=== PATIENT | female | born 1980 | race Caucasian/White ===

== ENCOUNTER 2022-07-28 08:45 | Emergency (ER) | payer BC, SELFPAY ==
[2022-07-28 08:53] VITALS: BP 104/69; PULSE 113; RESP 21; TEMP 36.9; O2SAT 97
--- NOTE | 2022-07-28 09:26 | ED.URI ---
HPI - URI/Sore Throat General Chief Complaint: Upper Respiratory Infection Stated Complaint: ear pain, cough, sore throat Time Seen by Provider: 07/28/22 09:23 Source: patient, RN notes reviewed and old records reviewed Mode of arrival: ambulatory Limitations: no limitations History of Present Illness HPI Narrative: 42-year-old female presents to the [facility] with cough, sore throat, bilateral ear pain, worse on the left than the right. States it has been about 2-3 days. Has taken ibuprofen with no relief. No treatment of cold medicine. Patient states a week ago they had flu-like symptoms. Everybody else is better however her ear pain has gotten worse. Has a cough, postnasal drainage. Patient is afebrile MD elicited complaint: cough, sore throat, rhinorrhea and nasal congestion Related Data Allergies Allergy/AdvReac Type Severity Reaction Status Date / Time Contrast Media Allergy Mild Nausea Uncoded 07/28/22 08:56 Review of Systems Review of Systems: All systems reviewed & are unremarkable except as noted in HPI and below Constitutional: Constitutional: Reports no additional constitutional complaints Eyes: Eyes: Reports no additional eye complaints ENT: Reports as per HPI, Reports otalgia, Reports nasal congestion and Reports sore throat Cardiovascular: Cardiovascular: Reports no additional cardiovascular complaints, Denies chest pain and Denies dyspnea Respiratory: Respiratory: Reports no additional respiratory complaints, Denies chest congestion, Denies cough and Denies dyspnea Gastrointestinal: Gastrointestinal: Reports no additional gastrointestinal complaints, Denies abdominal pain, Denies nausea and Denies vomiting Musculoskeletal: Musculoskeletal: Reports no additional musculoskeletal complaints Integumentary/Breasts: Skin/Breast: Reports system reviewed and no additional complaints, except as docu Neurologic: Reports system reviewed and no additional complaints, except as documented Psychiatric: Psychiatric: Reports no additional psychiatric complaints Allergic/Immunologic: Allergic/Immunologic: Reports no additional allergic/immunologic complaints [facility] Past Medical History Medical History Anemia Family History Family History Grandparent Breast cancer Social History Social History Smoking status: Never smoker Alcohol intake: never Comments At the time of my signature, I reviewed and agree with the nursing past medical, surgical, social, and family history. There is no relevant family history pertinent to the patient complaint. Exam Const: General: cooperative, healthy appearing, comfortable, no acute distress, well developed, alert and well nourished Nutritional Appearance: well nourished Orientation/consciousness: patient oriented x3 Limitations: no limitations HENMT: Head: normal to inspection Ears: hearing grossly normal bilaterally, external ears normal and TM abnormal bulging on the left and erythematous on the left Face/Nose/Sinus: Normal external nose present, Normal nares present, Normal nasal mucous membranes and turbinates present and normal facial exam Face and sinus: normal facial exam Mouth: Yes Normal oral and palatal mucosa present, Yes lip normal and Yes moist mucous membranes Throat: posterior oropharynx normal, uvula midline and postnasal drainage Eyes: General: appearance normal, both eyes and all related structures Alignment and Position: alignment normal Periorbital: periorbital findings normal Conjunctivae: conjunctivae normal Pupils: Equal, round and reactive pupils present EOM: EOMs intact bilaterally Neck: Neck: normal visual inspection, full ROM, no lymphadenopathy and no meningeal signs Chest: Chest palpation & inspection: normal inspection of the chest Resp: Effort & Inspection: normal respir
== END 2022-07-28 09:36 | disposition home or self-care (01) ==
PROVIDERS: Emergency Provider Nurse Practitioner; PCP Internal Medicine
DX: H66.92 Otitis media, unspecified, left ear (principal); H65.01 Acute serous otitis media, right ear; R09.82 Postnasal drip
CPT/HCPCS: 99213; G0463

== ENCOUNTER 2024-06-11 00:29 | Day surgery (SDC) | payer BC, SELFPAY ==
[2024-05-30 15:15] VITALS: BMI 22.8
--- NOTE | 2024-06-11 06:40 | WPDANESEPP ---
Anes - Eval Pre Procedure Procedure: Operation Date: 06/11/24 08:30 Proposed Procedures p Screening Colonoscopy - Joseph Ramirez DO Date/Time: 06/11/24 06:40 Pre Op Diagnosis: Screening for malignant neoplasm of colon Patient Data Age: 44 Gender: F Height: 1.65 m Weight: 62.25 kg Allergies Allergy/AdvReac Type Severity Reaction Status Date / Time Contrast Media Allergy Intermediate Nausea and Uncoded 05/30/24 15:16 Vomiting Home Medications Medication Instructions Recorded Confirmed Type meclizine 12.5 mg tablet 12.5 mg PO TID PRN dizziness #30 04/12/24 05/30/24 Rx tabs olopatadine 0.2 % eye drops 1 drp EACH EYE DAILY 04/12/24 05/30/24 History (Pataday Once Daily Relief) cholecalciferol (vitamin D3) 1,250 1,250 mcg PO WEEKLY #8 caps 05/15/24 05/30/24 Rx mcg (50,000 unit) capsule Patient hx anesthesia problems: none Family hx anesthesia problems: none Results Review: All pre-operative results and documents have been reviewed as part of the pre-operative evaluation. [facility] Past Medical History Medical History (Updated 04/12/24 @ 12:00 by Mary Hernandez NP) Anemia Surgical History Surgical History (Updated 06/11/24 @ 06:41 by John Rodriguez MD) H/O arthroscopic knee surgery H/O laparoscopy History of appendectomy Family History Family History Grandparent Breast cancer Social History Social History Smoking status: Never smoker Alcohol intake: current Substance use: never Do You Feel Safe in your Home?: Yes Lack of Transportation: No Lack of Food: Never True Current Housing: I Have Housing Concerned About Future Housing: No Difficulty Paying Gas/Electric Bills: No Difficulty Paying for Meds: No Currently Unemployed: No Education: Bachelor's Degree Difficulty w/ Childcare or Family Care: No Living arrangements: with family Spiritual care concerns: No Exam Day of Procedure 06/11/24 06:40 Patient weight: normal
--- NOTE | 2024-06-11 07:19 | P.PNAN_ITS ---
Anes - Eval Final PreProcedure Day of Procedure 06/11/24 07:19 Patient weight: normal Heart: regular rate and rhythm Lungs: clear to auscultation Airway: Mallampati scale class 1 Neurological: alert and oriented Last oral intake: >/= 8 hours ASA classification: I Emergent: no Anesthetic plan: proceed Anesthesia type and monitoring: general GIVS and standard monitoring Results Review: All pre-operative results and documents have been reviewed as part of the pre- operative evaluation. Informed Consent: The patient's anesthetic plan and its attendant risks and benefits were discussed with the patient/family/POA. Questions were solicited and answers provided to the satisfaction of the patient/family/POA.
[2024-06-11 07:29] VITALS: BP 102/73; PULSE 107; RESP 18; TEMP 35.8; O2SAT 98
[2024-06-11] MEDS: LACTATED RINGERS 1,000 ML 150 ML IV CONT (07:39)
--- NOTE | 2024-06-11 08:46 | P.HP_ITS ---
H&P: HPI History of Present Illness Date/Time: 06/11/24 08:46 Chief Complaint: Screening for colorectal cancer Narrative: this is a 44-year-old woman who presents for colonoscopy. She has never had a colonoscopy before. She denies any hematochezia or melena. She denies family history of colon cancer. Review of Systems Review of Systems: All systems reviewed & are unremarkable except as noted in HPI and below Constitutional: Constitutional: Denies chills, Denies fever(s), Denies headache(s) and Denies weight loss Eyes: Eyes: Denies change in vision ENT: Denies dizziness, Denies headache(s), Denies neck mass and Denies throat swelling Cardiovascular: Cardiovascular: Denies chest pain, Denies lightheadedness and Denies dyspnea Respiratory: Respiratory: Denies cough, Denies dyspnea and Denies wheezing Gastrointestinal: Gastrointestinal: Denies abdominal pain, Denies change in bowel habits, Denies nausea and Denies vomiting Genitourinary: Genitourinary: Denies hematuria and Denies dysuria Musculoskeletal: Musculoskeletal: Reports as per HPI Integumentary/Breasts: Skin/Breast: Reports as per HPI Neurologic: Denies dizziness and Denies headache(s) Allergic/Immunologic: Allergic/Immunologic: Denies throat swelling and Denies wheezing [facility] Past Medical History Medical History (Updated 04/12/24 @ 12:00 by Mary Hernandez NP) Anemia Surgical History Surgical History (Updated 06/11/24 @ 06:41 by John Rodriguez MD) H/O arthroscopic knee surgery H/O laparoscopy History of appendectomy Family History Family History Grandparent Breast cancer Social History Social History Smoking status: Never smoker Alcohol intake: current Substance use: never Do You Feel Safe in your Home?: Yes Lack of Transportation: No Lack of Food: Never True Current Housing: I Have Housing Concerned About Future Housing: No Difficulty Paying Gas/Electric Bills: No Difficulty Paying for Meds: No Currently Unemployed: No Education: Bachelor's Degree Difficulty w/ Childcare or Family Care: No Living arrangements: with family Spiritual care concerns: No Meds Home Medications and Allergies Home Medications Medication Instructions Recorded Confirmed Type meclizine 12.5 mg tablet 12.5 mg PO TID PRN dizziness #30 04/12/24 06/11/24 Rx tabs olopatadine 0.2 % eye drops 1 drp EACH EYE DAILY 04/12/24 06/11/24 History (Pataday Once Daily Relief) cholecalciferol (vitamin D3) 1,250 1,250 mcg PO WEEKLY #8 caps 05/15/24 06/11/24 Rx mcg (50,000 unit) capsule Allergies Allergy/AdvReac Type Severity Reaction Status Date / Time Contrast Media Allergy Intermediate Nausea and Uncoded 06/11/24 07:25 Vomiting Vital Signs Vital Signs - 24 hr 06/11/24 07:29 Temperature 96.4 F L Pulse Rate 107 H Respiratory Rate 18 Blood Pressure 102/73 Pulse Oximetry 98 Oxygen Delivery Room Air Exam Const: General: no acute distress and alert Orientation/consciousness: patient oriented x3 HENMT: Head: normocephalic and atraumatic Ears: hearing grossly normal bilaterally Face/Nose/Sinus: Normal nares present Mouth: Yes Normal oral and palatal mucosa present Eyes: Periorbital: periorbital findings normal Sclera: sclerae normal EOM: EOMs intact bilaterally Neck: Neck: normal visual inspection, no lymphadenopathy and trachea midline Chest: Chest palpation & inspection: normal inspection of the chest Resp: Effort & Inspection: normal respiratory effort Auscultation: clear to auscultation bilaterally Cardio: Jugular venous distension: no JVD Rate: regular rate Rhythm: regular rhythm Heart sounds: S1 normal heart sound present and S2 normal heart sound present Peripheral pulses: Peripheral pulses 2+ throughout GI: Inspection: normal to inspection GI Palp: Yes Soft to palpation, No Tenderness to palpation present (GI), No Guarding due to palpation present (GI) and No Rebound tenderness present Percussion: Yes normal to percussion Auscultation: normal bowel sounds : General: Yes no CVA tenderness Back/Spine/Pelvis: Back: no CVA tenderness Neuro: General: patient oriented x3, no focal motor deficits and CN's II-XI intact bilaterally Cognition (Neuro): normal cognition Speech: normal speech Motor exam (neuro): 5/5 motor strength present throughout Extrem: General: capillary refill normal and no clubbing, cyanosis or edema Assessment and Plan Assessment and plan (1) Screening for colon cancer: Code(s): Z12.11 - Encounter for screening for malignant neoplasm of colon Status: Acute Assessment and Plan: I have recommended colonoscopy. I have discussed the procedure, risks, benefits, and alternatives. Questions were answered. Patient is agreeable to proceed.
[2024-06-11 09:01] VITALS: BP 94/65; PULSE 88; RESP 20; O2SAT 99
[2024-06-11 09:01] LABS: BEDSIDEPREGUCG Negative (Negative)
[2024-06-11 09:11] VITALS: BP 96/50; PULSE 83; RESP 19; O2SAT 99
[2024-06-11 09:21] VITALS: BP 103/75; PULSE 76; RESP 22; O2SAT 99
== END 2024-06-11 09:40 | disposition home or self-care (01) ==
PROVIDERS: PCP Nurse Practitioner; Visit Provider Surgery
PROC: 0DJD8ZZ Inspection of Lower Intestinal Tract, Via Natural or Artificial Opening Endoscopic (ICD-10-PCS; CPT 45378; principal; 2024-06-11 08:30)
DX: Z12.11 Encounter for screening for malignant neoplasm of colon (principal)
CPT/HCPCS: 45378; J2704; J7120

== ENCOUNTER 2024-09-03 10:41 | Outpatient (CLI) | payer BC, SELFPAY ==
--- NOTE | ~2024-09-03 | XR_ITS ---
AP and lateral views of the sacrum/coccyx CLINICAL HISTORY: Back pain FINDINGS: No fracture or dislocation seen. Joint spaces are intact. Soft tissues are unremarkable. IMPRESSION: No significant abnormality seen. Reviewed, dictated and finalized at [facility]. 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
--- NOTE | ~2024-09-03 | XR_ITS ---
HISTORY: M54.9 - Dorsalgia, unspecified COMPARISON: 11/02/2017. Reference was also made to an MRI examination of the lumbar spine dated 11/11/19 18 TECHNIQUE: 3 view lumbar spine. FINDINGS: 12 degrees of levoscoliotic curvature is identified. There are 6 non-rib bearing lumbar vertebral bodies. Trace narrowing at the level of L4/L5 with endplate change. Remaining spaces and vertebral body heights are otherwise maintained. There are no lytic or sclerotic lesions. Paraspinal soft tissues are unremarkable. Mild facet arthropathy is detected. IMPRESSION: Redemonstration of mild levoscoliotic curvature, and trace disc space narrowing at the level of L4/L5 . Reviewed, dictated and finalized at location [facility]. [facility] IMPRESSION: Redemonstration of mild levoscoliotic curvature, and trace disc space narrowing at the level of L4/L5.
== END 2024-09-03 10:42 | disposition home or self-care (01) ==
LOC: GOSHIMG 10:41
PROVIDERS: PCP Nurse Practitioner; Visit Provider Nurse Practitioner
DX: M41.86 Other forms of scoliosis, lumbar region (principal); M48.061 Spinal stenosis, lumbar region without neurogenic claudication; M53.3 Sacrococcygeal disorders, not elsewhere classified
CPT/HCPCS: 72100; 72220

== ENCOUNTER 2024-09-04 13:37 | Outpatient (CLI) | payer BC, SELFPAY ==
--- NOTE | ~2024-09-04 | MR_ITS ---
EXAMINATION: MR lumbar spine wo con DATE: 09/04/2024 14:14 INDICATION: Lumbar radiculopathy TECHNIQUE: Magnetic resonance imaging (MRI) of the lumbar spine was performed without intravenous con trast. Sequences included sagittal T2-weighted FSE, sagittal T2-weighted FS FSE, sagittal T1-weighted FSE, and axial T2-weighted FSE. COMPARISON: Radiographs dated 09/03/2024 and MRI dated 11/10/2017 FINDINGS: Again seen are 6 nonrib-bearing lumbar vertebral bodies which for purposes of this report will be carter ignated L1-L5. Of note this was not recognized on the prior study resulting in a difference in number ing of the vertebral bodies with L5 in the current study corresponding to L4 on the report on the dayna or study. There is a normal complement of 12 paired rib bearing thoracic segments evident on prior est CT dated 12/2016. 11 degrees lumbar levocurvature. 1-2 mm retrolisthesis L5 on L6. Chronic mild likely physiologic ante rior wedging at T11-L1. There are Schmorl's nodes with adjacent fibrovascular degenerative endplate c hanges at both sides of the moderately narrowed there are T1 hyperintense hemangiomas at L5-L6 disc s pace. Again seen are T1 hyperintense hemangiomas at L2 and L5. Mild disc height loss at L3-L4. The co nus medullaris terminates at L2. There is normal signal in the caudal spinal cord. Paravertebral soft tissues are unremarkable. The following disc levels are specifically discussed: L1-L2: The disc does not extend beyond the endplate margin. There is no facet joint osteoarthritis. T here is no neural foraminal stenosis. There is no central canal stenosis. L2-L3: The disc does not extend beyond the endplate margin. There is mild right facet joint osteoarth ritis. There is no neural foraminal stenosis. There is no central canal stenosis. L3-L4: Disc is mildly bulging. There is mild bilateral facet joint osteoarthritis. There is no neural foraminal stenosis. There is minimal central canal stenosis. L4-L5: Disc is mildly bulging. There is mild to moderate bilateral facet joint osteoarthritis. There is mild bilateral neural foraminal stenosis. There is minimal central canal stenosis. L5-S1: Disc is bulging with superimposed annular fissure and slight increase in size of a central dis c extrusion which extends 6 mm caudal to the level of the superior endplate of L6. There is mild to m oderate bilateral facet joint osteoarthritis. There is moderate bilateral neural foraminal stenosis. There is mild central canal stenosis along with narrowing of the left and right lateral recesses. L5-L6: The disc does not extend beyond the endplate margin. There is mild bilateral facet joint osteo arthritis. There is no neural foraminal stenosis. There is no central canal stenosis. IMPRESSION: 1. Normal anatomic variant 6 nonrib-bearing lumbar segments which for purposes of this report will be designated L1-L6. 2. Lumbar spondylosis with interval progression moderate disc height loss with a moderate-sized centr al disc protrusion contributing to moderate bilateral neural foraminal stenosis at L4-L5. Otherwise m inimal to mild lumbar spondylosis. Reviewed, dictated and finalized at location A. [facility]ATRIST IMPRESSION: 1. Normal anatomic variant 6 nonrib-bearing lumbar segments which for purposes of this report will be designated L1-L6. 2. Lumbar spondylosis with interval progression moderate disc height loss with a moderate-sized central disc protrusion contributing to moderate bilateral sara ral foraminal stenosis at L4-L5. Otherwise minimal to mild lumbar spondylosis.
== END 2024-09-04 13:38 | disposition home or self-care (01) ==
PROVIDERS: PCP Nurse Practitioner; Visit Provider Nurse Practitioner
DX: M47.816 Spondylosis without myelopathy or radiculopathy, lumbar region (principal); M51.369 Other intervertebral disc degeneration, lumbar region without mention of lumbar back pain or lower extremity pain; M51.26 Other intervertebral disc displacement, lumbar region; M48.061 Spinal stenosis, lumbar region without neurogenic claudication; M54.16 Radiculopathy, lumbar region
CPT/HCPCS: 72148

== ENCOUNTER 2024-10-25 08:16 | Emergency (ER) | payer BC, SELFPAY ==
--- NOTE | ~2024-10-25 | CT_ITS ---
EXAMINATION: CT lumbar spine wo con DATE: 10/25/2024 09:32 INDICATION: Back pain. TECHNIQUE: Computed tomography (CT) of the lumbar spine was performed without intravenous contrast. A utomated exposure control and iterative reconstruction technique were employed. The dose-length produ ct was 286.14 mGy-cm. COMPARISON: Lumbar spine MRI 09/04/2024, 12/30/16 FINDINGS: There is a 3.2 cm cyst in left ovary, likely a follicular cyst. There is a 2.9 cm cyst in r ight ovary, likely a dominant follicle. There are 6 nonrib-bearing lumbar type segments. S1 is lumbar ized. Alignment is normal. Vertebral body heights are normal. There is mildly decreased disc height a t L3-L4 and moderately decreased disc height at L5-L6. The following disc levels are specifically dis cussed: L2-L3: The disc does not extend beyond the endplate margin. There is mild bilateral facet joint osteo arthritis. There is no neural foraminal stenosis. There is no central canal stenosis. L3-L4: The disc is bulging. There is mild bilateral facet joint osteoarthritis. There is no neural fo raminal stenosis. There is mild central canal stenosis. L4-L5: The disc is bulging. There is mild right facet joint osteoarthritis. There is mild bilateral n eural foraminal stenosis. There is mild central canal stenosis. L5-S1: The disc is bulging with superimposed left central extrusion. There is moderate right and mild left facet joint osteoarthritis. There is mild bilateral neural foraminal stenosis. There is mild ce ntral canal stenosis. S1-S2: The disc does not extend beyond the endplate margin. There is moderate bilateral facet joint o steoarthritis. There is no neural foraminal stenosis. There is no central canal stenosis. IMPRESSION: 1. Moderate lumbar spondylosis, stable from 09/04/2024. Reviewed, dictated and finalized at location A.
[2024-10-25 08:20] VITALS: BP 141/98; PULSE 100; RESP 20; TEMP 36.4; O2SAT 100
--- OUTSIDE RECORDS SUMMARY | 2024-10-25 08:23 | XMS_ITS | Data Portability ---
Author Organization [facility] Address [address] [place] [address] Care Team Providers Care Environmental Journalist Name Role Phone OSMAR XAVIER Primary Care Provider Assessment Encounter Date Assessment Date Assessment LastModified by Organization Details LastModified Time 05/04/2021 05/04/2021 The patient and I disscussed the various causes of abnormal uterine bleeding, including polyps, fibroids, hyperplasia, atypia, anovulation, etc. We reviewed the typical evaluation with labs, pelvic US and possible endometrial biopsy. Briefly discussed the options available for treatment (depending on the results of evaluation) such as hormonal treatment (OCPs, progestins), Mirena, endometrial ablation, and surgery. We spent more than 30 minutes face to face. [email or web address] Not available 05/04/2021 16:03:37 Plan of Treatment Reminders Order Date Submit Date Provider Last Modified By Organization Details Last Modified Time Details Appointments None recorded. Lab None recorded. Referral None recorded. Procedures None recorded. Surgeries None recorded. Imaging US, pelvis, complete 2020 Davin Briones MD, [address], [place], [address], 16:11:52 US, pelvis 2020 [email or web address] Anita, [address], [address], [place], [address], 14:12:45 US, transvagina l 2020 [email or web address] Anita[address], [place], [address], 14:12:45 US, pelvis, complete 2020 021 [email or web address] [address]ita[address], [place], [address], 14:55:10 Medication Orders None recorded. Patient TargetsNo targets recorded. Patient InstructionsNo instructions recorded. Reason for Referral None Reported. Results Created Date Observation Date Name Description Value Unit Range Abnormal Flag Note LastModifiedBy Organization Detail LastModifiedTime 05/06/2005/06/2021 US, ralu ken No observ ation record ed. [email or web address] Anita [address], [place], [address], 05/06/2021 13:45:15 05/06/2005/06/2021 US, trans vagin al No observ ation record ed. [email or web address] Anita [address], [place], [address], 05/06/2021 13:45:24 05/06/20 21 05/06/2021 US, jovanvi s No observ ation record ed. layran Anh [address], [place], [address], 05/13/2021 18:04:31 Result Notes None recorded. Problems Name Problem SNOMED Code Status Onset Date Resolution Date Notes Provider Name and Address Organization Details Recorded Time SNOMED CT Concept Completed 201705/04/2021 Encntr for general adult medical exam w/o abnormal findings; Recorded Elsewhere : No Locati on: [facility] So urce: EHR Chron ic: N Practic e ID: 0001 Bill able Time: 01:00:00 PM Marie Latham [place] - [facility] 13:38:55 Screenin g for malignan t neoplasm of cervix Completed 201305/04/2021 Screening for malignant neoplasms of the cervix;Re corded Elsewhere : No Locati on: [facility] So urce: EHR Chron ic: N Practic e ID: 0001 Bill able Time: 02:00:00 PM Marie Latham [facility] 13:38:50 Palpitat ions [id number] Completed 201305/04/2021 Palpitati ons;Recor ded Elsewhere : No Locati on: [facility] So urce: EHR Chron ic: N Practic e ID: 0001 Bill able Time: 02:00:00 PM Marie Latham [facility] 13:38:[address] Concept Completed 201705/04/2021 Encntr for telephone maintainer exam (general) (routine) w/o abn findings; Recorded Elsewhere : No Locati on: [facility] So urce: EHR Chron ic: N Practic e ID: 0001 Bill able Time: 01:00:00 PM Marie Latham [facility] 13:38:57 Finding of menstrua l bleeding Completed 201705/04/2021 Menorrhag ia;Record ed Elsewhere : No Locati on: [facility] So urce: EHR Chron ic: N Practic e ID: 0001 Bill able Time: 01:00:00 PM Marie Latham [facility] 13:38:28 Disorder of breast 16964565 Completed 201705/04/2021 Disorder of breast, unspecifi ed;Record ed Elsewhere : No Locati on: [facility] So urce: EHR Chron ic: N Practic e ID: 0001 Bill able Time: 01:00:00 PM Marie Latham [facility] 13:38:25 Routine antenata l care Completed 201005/04/2021 Supervisi on of other normal ;Practice ID: 0001 Marie [facility] 13:38:35 Poor growth affectin g manageme nt [id number] Completed 201005/04/2021 GROWTH POOR SGA;Pract ice ID: 0001 Marie Latham [facility] 13:38:33 Delivery normal [id number] Completed 201005/04/2021 Normal delivery; Practice ID: 0001 Marie Latham [facility] 13:38:23 Single live [id number] Completed 201005/04/2021 Mother with single liveborn; Practice ID: 0001 Marie Latham [facility] 13:38:53 Leukocyt osis 812986655 Completed 201305/04/2021 LEUKOCYTO SIS NOS;Pract ice ID: 0001 Marie Latham [facility] 13:38:30 Female genital organ symptoms 227140754 Completed 201305/04/2021 Unspecifi ed symptom associate d with female genital organs;Pr actice ID: 0001 Marie Latham [facility] 13:38:26 Speciali zed medical examinat ion Completed 201305/04/2021 Routine gynecolog ical examinati on;Practi ce ID: 0001 Marie Latham [facility] 13:38:58 Cyst of ovary [id number] Completed 201305/04/2021 OVARIAN CYST;Prac griselda ID: 0001 Marie Latham [facility] 13:38:22 Problem Notes None recorded. Procedures Surgical History Date Name Laterality Status Provider Name and Address Organization Details Recorded Time 05/12/20 Date of Last Mammogram completed Marie Latham [facility] 05/12/2021 17:31:37 07/31/19 13 Appendectomy completed [facility] 05/12/2021 17:27:51 07/31/19 13 laparoscopy completed [facility] 05/12/2021 17:28:28 Imaging Results Imaging Date Name Status LastModified by Organization Details LastModified Time 05/06/2021 US, pelvis completed [email or web address] Anita [address], [place], [address], 05/06/2021 13:45:15 05/06/2021 US, transvaginal completed [email or web address] Mary[place] e [address], [place], [address], 05/06/2021 13:45:24 05/06/2021 US, pelvis completed layran Anh [address], [place], [address], 05/13/2021 18:04:31 Procedure Notes None recorded. Medical Equipment None Reported. Allergies Allergen ID Allergen Name Allergen Category Reaction Reaction Severity Criticality Documentation Date Start Date Code Code System Note Provider Name and Address Organization Details Recorded Time 59754 Iodinated contrast media (substanc e) medicatio n Not available Not available Not available 05/04/[address] [facility] 16:05:02 Vitals Date Recorded Body height Body mass index (BMI) Body weight Systolic blood pressure Diastolic blood pressure Provider Name and Address Organization Details Last Updated DateTime 05/04/2021 163.83 cm 22.8 kg/m2 54309.97 g 109 mm[Hg] 71 mm[Hg] [facility] 16:04:48 Date Recorded Body height Body mass index (BMI) Body weight Systolic blood pressure Diastolic blood pressure Provider Name and Address Organization Details Last Updated DateTime 05/13/2021 163.83 cm 23.2 kg/m2 94856.15 g 99 mm[Hg] 64 mm[Hg] Marie Latham [facility] 13:04:01 Social History Question Answer Notes LastModified by Organizat ion Details LastModified Time Tobacco Smoking Status Never Smoker Marie Latham [facility], [facility] 05/12/2021 17:29:51 What Is Your Level Of Alcohol Consumption? None Information not available 05/12/2021 Are You Blind Or Do You Have Difficulty Seeing? No Information not available 05/12/2021 What Is Your Level Of Caffeine Consumption? Occasional Information not available 05/12/2021 Are You Deaf Or Do You Have Serious Difficulty Hearing? No Information not available 05/12/2021 What Type Of Diet Are You Following? REGULAR Information not available 05/12/2021 Do You Use Your Seat Belt Or Car Seat Routinely? Yes Information not available 05/12/2021 Do You Have Smoke And Carbon Monoxide Detectors In Your Home? Yes Information not available 05/12/2021 Do You Feel Stressed (tense, Restless, Nervous, Or Anxious, Or Unable To Sleep At Night)? [id number] Information not available 05/12/2021 Do You Use Any Illicit Or Recreational Drugs? No Information not available 05/12/2021 Do You Use Sunscreen Routinely? Yes Information not available 05/12/2021 Sex: Unknown Functional Status Question Answer Note LastModified by Organization D etails LastModified Time Are you able to walk? YESWOREST Information not available 05/12/2021 What is your exercise level? None Information not available 05/12/2021 Mental Status None recorded. Family History Nothing Reported. Medical History Condition Response Other Y Gynecological History Statement/Question Response Are cycles usually normal Y Date of Last Mammogram 05/12/2018 Flow Light Date of LMP 04/15/2021 Menses Monthly Y Was last menstrual period normal N Date of Last Pap Smear Duration of Flow (days) 1 LMP Approximate Obstetrics History GPAL:G 3 P 0 0 0 3 Type Value Living 3 Total 3 Past Encounters Encounter ID Performer Location Encounter Start Date Encounter Closed Date Diagnosis/Indication Diagnosis SNOMED-CT Code Diagnosis ICD10 Code Diagnosis Note [id number] Cara Flynn , [facility] [address],[place] [address] 05/04/2021 15:46:17 05/04/2021 16:31:03 Abnormal uterine bleeding 0771448364 9100 N93.9 Heavy menses with covid ast period was normal but having some right sided pelvic painWe agreed to update TVUS at this time.Defer labs b/c of recent PCP visit.Will await results & decide next steps. Time spent in visit is a total of 32 mins with at least 50% of visit consisting of counseling and review of plan of care.Addit ional precaution primitivo measures were taken to minimize potential exposure to the Covid-19 virus during this patient s visit, including available hand automobile mechanic supervisor upon arrive, temperatur e check and being asked a series of screening questions. All staff wore face coverings during this encounter, as well as provided additional cleaning and sanitizing of all surfaces, including countertop s, pens, chairs, door handles, light switches, etc, prior to and following the patient s visit. [id number] Sharynisiah Latham Anita [address],[place] [address] 05/06/2021 11:04:10 05/06/2021 12:00:12 Pain in pelvis 69706901 R10.2 N92.6 [id number] Cara Flynn , [facility] [address],[place] [address] 05/13/2021 12:51:21 05/13/2021 13:47:12 Cyst of ovary 69478407 N83.209 TVUS reviewed.S he is doing very well & no pain at all.Had her period last week & feels it has returned to her norm We agreed we can schedule r/p us x 8wks but if she is feeling fine & periods continue to return to normal than okay to cancel this imaging. She is due for updated WWE; will schedule on her way out. Time spent in visit is a total of 32 mins with at least 50% of visit consisting of counseling and review of plan of care.Addit ional precaution primitivo measures were taken to minimize potential exposure to the Covid-19 virus during this patient s visit, including available hand automobile mechanic supervisor upon arrive, temperatur e check and being asked a series of screening questions. All staff wore face coverings during this encounter, as well as provided additional cleaning and sanitizing of all surfaces, including counter-to ps, pens, chairs, door handles, light switches, etc, prior to and following the patient s visit. Health Concerns Section Related Observation LastModified by Organization Detai ls LastModified Time None Recorded Concern Status LastModified by Organization Details LastModified Time None Recorded Advance Directives Directive None Recorded Payers Encounter Date Sequence Insurance Name Policy Number Policy Paige Covered Member ID Paige Member ID Guarantor Name 05/04/2021 1 [place] [id number] Tania N [place] [id number] T[place] N [place] 05/06/2021 1 [place] [id number] Tania N [place] [id number] Tania N [place] 05/13/2021 1 [place] [id number] Tania N [place] [id number] Tania N [place] Notes Date Note Type Note Provider Name and Address Organization Details Recorded Time 05/04/2021 text/html Beer - Abnormal BleedingReported bypatient.Notes:Covid 02/2021-this menstrual cycle with large heavy clots for at least the first 2-3 days. Her next menses 04/15/2021-felt like a normal menses day one; went to bed, woke up & menses had seemingly stopped completely. Monday awoke & had a weird Since this last period has had a lot of ovary pain lower pelvic >right than left.Feels like a burning hot sensation. Unable to trigger this discomfort which presents more as a constant ache in this area.Has not had to take any pain medication.Last SA 2wks ago; but prior to this it had been 6-9mos. Normal Menstrual period, lasting 4-5 days, heavy day 2 but then moderate to progressively estimate clerk. Cara Flynn, NIKOLAI- [address], [place], [address], [facility] 05/04/2021 16:26:13 05/13/2021 text/html Here for TVUS Fo llow up for pelvic pain/irregular cycle. Cara Flynn, NIKOLAI- [address], [place], [address], [facility] 05/13/2021 13:34:57 OBGyn Episode Ob Episode Information Episode Created Date Number of Fetuses Patient Bloodtype Patient rh Status Prepregnancy Weight lbs Domestic Partner Domestic Partner Phone Father Name Refrigeration Installer Status 05/12/20 21 1 CLOSED Fetus Data First Name Last Name Admitted to NICU Weight (g) Sex Living Outcome Pediatric Complications Fetus ID Race Codes Race Delivery Type F [id number] Vaginal Delivery Ced Calculation Initial Ced Date Initial Exam Date Initial Exam Provider Initial Ultrasound Date Last Menstrual Period Date Ultra Sound Weeks Gestation 0 Eighteen To Twenty Week Ced Update Ultra Sound Date Fundal Height At Umbil Quickening Date Ultra Sound Latest Weeks Gestation Final Ced Confirmed By Final Ced Confirmed Date Final Ced Date Ultra Sound Latest Days Gestation 0 0 Menstrual History Last Menstrual Date Menses Monthly On Bcp Conception Prior Menses Frequency Hcg Plus Date Menarche Onset Age Delivery Information Delivery Date Delivery Type Labor Anesthesia Weeks Gestation Incision Type Labor Labor Length Hrs Delivered By Post Complications Tubal Sterilization Discharge Date Comments 6 Discharge Information Feeding Method Contraceptive Method Maternal HG B and HCT Levels Ob Episode Information Episode Created Date Number of Fetuses Patient Bloodtype Patient rh Status Prepregnancy Weight lbs Domestic Partner Domestic Partner Phone Father Name Refrigeration Installer Status 05/12/20 21 1 CLOSED Fetus Data First Name Last Name Admitted to NICU Weight (g) Sex Living Outcome Pediatric Complications Fetus ID Race Codes Race Delivery Type F [id number] Vaginal Delivery Ced Calculation Initial Ced Date Initial Exam Date Initial Exam Provider Initial Ultrasound Date Last Menstrual Period Date Ultra Sound Weeks Gestation 0 Eighteen To Twenty Week Ced Update Ultra Sound Date Fundal Height At Umbil Quickening Date Ultra Sound Latest Weeks Gestation Final Ced Confirmed By Final Ced Confirmed Date Final Ced Date Ultra Sound Latest Days Gestation 0 0 Menstrual History Last Menstrual Date Menses Monthly On Bcp Conception Prior Menses Frequency Hcg Plus Date Menarche Onset Age Delivery Information Delivery Date Delivery Type Labor Anesthesia Weeks Gestation Incision Type Labor Labor Length Hrs Delivered By Post Complications Tubal Sterilization Discharge Date Comments 8 Discharge Information Feeding Method Contraceptive Method Maternal HG B and HCT Levels Ob Episode Information Episode Created Date Number of Fetuses Patient Bloodtype Patient rh Status Prepregnancy Weight lbs Domestic Partner Domestic Partner Phone Father Name Refrigeration Installer Status 05/12/20 21 1 CLOSED Fetus Data First Name Last Name Admitted to NICU Weight (g) Sex Living Outcome Pediatric Complications Fetus ID Race Codes Race Delivery Type F [id number] Vaginal Delivery Ced Calculation Initial Ced Date Initial Exam Date Initial Exam Provider Initial Ultrasound Date Last Menstrual Period Date Ultra Sound Weeks Gestation 0 Eighteen To Twenty Week Ced Update Ultra Sound Date Fundal Height At Umbil Quickening Date Ultra Sound Latest Weeks Gestation Final Ced Confirmed By Final Ced Confirmed Date Final Ced Date Ultra Sound Latest Days Gestation 0 0 Menstrual History Last Menstrual Date Menses Monthly On Bcp Conception Prior Menses Frequency Hcg Plus Date Menarche Onset Age Delivery Information Delivery Date Delivery Type Labor Anesthesia Weeks Gestation Incision Type Labor Labor Length Hrs Delivered By Post Complications Tubal Sterilization Discharge Date Comments 1 Discharge Information Feeding Method Contraceptive Method Maternal HG B and HCT Levels
--- OUTSIDE RECORDS SUMMARY | 2024-10-25 08:23 | XMS_ITS | Continuity of Care Document ---
Author Organization [facility] Address [address] [place] [address] Phone Care Team Providers Care Verifier Name Role Phone Amrita SALOMON OD, [place] Unavailable Unavailabl e Allergies, Adverse Reactions, Alerts Substance Reaction Status Criticality No Known allergies Procedures Procedure Date No Charge Refractive Evaluation 013 Routine Exam-Establ Pt No Charge Orbscan Advance Directives Directive Yes / No Effective Date File Name Resuscitation Not Answered N/A N/A Life Support Not Answered N/A N/A Intubation Not Answered N/A N/A Antibiotics Not Answered N/A N/A IV Fluid Support Not Answered N/A N/A Tube Feed Not Answered N/A N/A Other Directive N/A N/A WARNING:The information contained in this section is historical and is provided for information only and does not constitute a legal document or any assurance that the information is still accurate. Please verify the information with the floyd of the legal document before using it for clinical purposes. Encounters Encounter Description Practice Location Reason(s) For Visit Diagnoses Date Provider Providers Copied on Encounter [facility], [address], [place], [place], [id number], [place] tel:[phone] [address] [facility] No Information Amrita Boyle. [address], [place], [id number], [place]. tel:[phone] Referring Provider: [place] Crowe OD P, [address] [place], [address] . tel:[phone] [facility], [facility], [address], [place], [place], [id number], [place] tel:[phone] [facility] Ballmarquita visual aura (chief complaint) SUBJ VISUAL DISTURB NOS Amrita Boyle. [address], [place], [id number], [place]. tel:[phone] Referring Provider: [place] Crowe OD P, [address] [place], [address] . tel:[phone] Family History Family Member Type Diagnosis Age At Onset Unknown Problem (finding) Diabetes mellitus Payers Payer name Insurance type Covered democrat ID Authoriza tion(s) No Information Social History Type Description Quantity Date Captured Comments Alcohol Use Details No Caffeine Use Details No Tobacco Use Status No Information Smoking Status Never smoker Sex Female Chief Complaint And Reason For Visit No Information Reason For Referral Reason For Referral No Information History Of Present Illness Encounter Date Complaint History Of Prese nt Illness No Information Functional Status Date Functional Assessmen t No Information Instructions Date Instruction Additional Infor nicolas - Return in 2 weeks with [place] Crowe O.D. for follow up exam. Related to SUBJ VISUAL DISTURB NOS SUBJ VISUAL DISTURB NOS - disc DT 1 as ctl option-disc not for astigmatism-disc may not do since pt wants Lasikdisc ICL if lasik not an optionperform repeat ORBSCAN, MR at fup Related to SUBJ VISUAL DISTURB NOS Assessments Type Assessment Date No Information Patient Care Teams Name Effective Dates (start - stop) Status Members No Information
--- OUTSIDE RECORDS SUMMARY | 2024-10-25 08:24 | XMS_ITS | Referral Summary ---
Author Organization [facility] Address [address] [address] Care Team Providers Care Cement Finisher Apprentice Name Role Phone Grayson Friend DO Primary Care Provider +1- [phone] Allergies Active Allergy Reactions Criticality Noted Date Comments Iodinated Contrast Media Nausea & Vomiting Low 08/31 Other Nausea & Vomiting Low 08/26/2014 Medications azelastine (OPTIVAR) 0.05 % ophthalmic solutionIndications :Allergic Conjunctivitis 1 9 Active olopatadine (PATADAY) 0.2 % ophthalmic solutionIndications :Allergic Conjunctivitis 1 drop daily Active Active Problems Problem Noted Date Diagnosed Date Abnormal findings on diagnostic imaging of breas t 06/14/2018 Iron deficiency anemia, unspecified 12/22/2016 Menorrhagia 12/22/2016 Social History Tobacco Use Types Packs/Day Years Used Date Smoking Tobacco: Never Smokeless Tobacco: Never Comments Unknown Sex and Gender Information Value Date Recorded Sex Assigned at Not on file Legal Sex Female 9:30 PM NIP WRAPPER Gender Identity Not on file Sexual Orientation Not on file Last Filed Vital Signs Vital Sign Reading Time Taken Comments Blood Pressure 100/71 06/15/2023 10:55 AM NIP WRAPPER Pulse 94 06/15/2023 10:55 AM NIP WRAPPER Temperature 36.3 C (97.3 F) 06/15/2023 10:55 AM NIP WRAPPER Respiratory Rate 16 06/15/2023 10:55 AM NIP WRAPPER Oxygen Saturation 97% 06/15/2023 10:55 AM NIP WRAPPER Inhaled Oxygen Concentration - - Weight 60.8 kg (134 lb) 06/15/2023 10:55 AM NIP WRAPPER Height 166 cm (5' 5.35 ) 12/16/2021 10:31 AM CDT Body Mass Index 22.06 12/16/2021 10:31 AM CDT Plan of Treatment Not on file Procedures Procedure Name Priority Date/Time Associated Diagnosis Comments DIAGNOSTIC MAMMOGRAM BILATERAL W OSMAR Schedule Routine, Read Routine (OP Routine) 05/20/2024 8:56 AM CDT Mastodynia from Last 3 Months or Most Recently Relevant to Health Maintenance Results * Diagnostic Mammogram Bilateral W Osmar (05/20/2024 8:56 AM CDT) Anatomical Region Laterality Modality Breast Bilateral Mammography 05/20/2024 9:49 AM CDT Impressions 05/20/2024 12:41 PM CDT 1. No suspicious mammographic abnormality in EITHER breast. 2. No suspicious sonographic abnormality in the area of pain in the RIGHT breast. Clinical follow-up for pain is recommended. OVERALL FINAL ASSESSMENT: BI-RADS Category 1: Negative. RECOMMENDATION: 1. Annual screening mammography is recommended. 2. Clinical follow-up is recommended. Dr. Liang discussed the above findings and recommendations with the patient, who expressed her understanding of the management plan. Dictated by: Javier Burris MD The radiology attending physician has personally reviewed this study, and had reviewed and/or edited this written report and agrees with it. Electronically signed by: Master Liang MD Narrative 05/20/2024 12:41 PM CDT EXAMINATION: BILATERAL DIGITAL DIAGNOSTIC MAMMOGRAM INCLUDING CAD AND BILATERAL DIGITAL BREAST TOMOSYNTHESIS; RIGHT BREAST SONOGRAM HISTORY: 44-year-old female with history of cyst aspirations and persistent medial right breast pain. COMPARISON: Multiple priors dating back to 2018, most recent mammogram and ultrasound 12/07/2020 TECHNIQUE: Full field digital mammographic views of BOTH breasts were performed, including computer aided detection (CAD) and BILATERAL digital breast tomosynthesis (DBT). Directed ultrasound of the RIGHT breast was performed. BREAST PARENCHYMAL COMPOSITION: There are scattered areas of fibroglandular density. MAMMOGRAM FINDINGS: There is no new suspicious abnormality within EITHER breast; the appearance of BOTH breasts is stable compared to prior exams. SONOGRAM FINDINGS: Targeted ultrasound of the RIGHT breast at the 4:00 area of pain demonstrates no suspicious sonographic abnormality. A targeted physical exam and ultrasound was performed by Dr. Liang. Procedure Note Master Liang MD - 05/20/2024 EXAMINATION: BILATERAL DIGITAL DIAGNOSTIC MAMMOGRAM INCLUDING CAD AND BILATERAL DIGITAL BREAST TOMOSYNTHESIS; RIGHT BREAST SONOGRAM HISTORY: 44-year-old female with history of cyst aspirations and persistent medial right breast pain. COMPARISON: Multiple priors dating back to 2018, most recent mammogram and ultrasound 12/07/2020 TECHNIQUE: Full field digital mammographic views of BOTH breasts were performed, including computer aided detection (CAD) and BILATERAL digital breast tomosynthesis (DBT). Directed ultrasound of the RIGHT breast was performed. BREAST PARENCHYMAL COMPOSITION: There are scattered areas of fibroglandular density. MAMMOGRAM FINDINGS: There is no new suspicious abnormality within EITHER breast; the appearance of BOTH breasts is stable compared to prior exams. SONOGRAM FINDINGS: Targeted ultrasound of the RIGHT breast at the 4:00 area of pain demonstrates no suspicious sonographic abnormality. A targeted physical exam and ultrasound was performed by Dr. Liang. IMPRESSION: 1. No suspicious mammographic abnormality in EITHER breast. 2. No suspicious sonographic abnormality in the area of pain in the RIGHT breast. Clinical follow-up for pain is recommended. OVERALL FINAL ASSESSMENT: BI-RADS Category 1: Negative. RECOMMENDATION: 1. Annual screening mammography is recommended. 2. Clinical follow-up is recommended. Dr. Liang discussed the above findings and recommendations with the patient, who expressed her understanding of the management plan. Dictated by: Javier Burris MD The radiology attending physician has personally reviewed this study, and had reviewed and/or edited this written report and agrees with it. Electronically signed by: Master Liang MD us Provider Transcribed Order IMG MAMMO PROCEDURES Final Result from Last 3 Months or Most Recently Relevant to Health Maintenance [place] [employer] [place] [facility] [place] [employer] [place] Care Teams Cement Finisher Apprentice Relationship Specialty Start Date End Date Grayson Friend DO PCP - General 11/29/16
--- OUTSIDE RECORDS SUMMARY | 2024-10-25 08:24 | XMS_ITS | Clinical Summary ---
Author Organization [facility] Address [address] [place] [address] Care Team Providers Care Solids Control Technician Name Role Phone Unavailable Primary Care Provider Unavailabl e Social History Tobacco Use Types Packs/Day Years Used Date Smoking Tobacco: Never Assessed Comments Unknown Sex and Gender Information Value Date Recorded Sex Assigned at Not on file Legal Sex Female 5:05 PM CDT Gender Identity Not on file Sexual Orientation Not on file Plan of Treatment Health Maintenance Due Date Last Done Comments Cervical Cancer Screening Pa p Smear (Age 30 to 64) Every 3 Years 1979 Colorectal Cancer Screening Colonoscopy (10 Years) 1979 Annual Physical 1982 Hepatitis C 1997 DTaP, Tdap and Td Vaccines ( 1 - Tdap) 1998 Hepatitis B Vaccines (1 of 3 - 19+ 3-dose series) 1998 Cervical Cancer Screening Pa p with HPV Testing (Age 30 to 64) Every 5 Years 2009 Cervical Cancer Screening with HPV 2009 Mammogram Screening 2019 COVID-19 Vaccine (2023-2 5 season) 2024 Influenza Adult (#1) 2024 HPV Vaccines Aged Out No longer eligi ble based on patient's age to complete this topic Meningococcal B Vaccine Aged Out No l onger eligible based on patient's age to complete this topic Meningococcal Vaccine Aged Out No hardik alise eligible based on patient's age to complete this topic Pneumococcal Vaccine: Pediat rics (0 to 5 Years) and At-Risk Patients (6 to 64 Years) Aged Out No longer eligible b ased on patient's age to complete this topic RSV Immunizations Under 20 Months Aged Out No longer eligible based on patient's age to complete this topic
--- OUTSIDE RECORDS SUMMARY | 2024-10-25 08:24 | XMS_ITS | Clinical Summary ---
Author Organization [facility] Address [address] [address] Care Team Providers Care Fiber Picker Name Role Phone Grayson Friend DO Primary Care Provider +1- [phone] Allergies Active Allergy Reactions Criticality Noted Date [...] Iron deficiency anemia, unspecified 12/22/2016 Menorrhagia 12/22/2016 Surgical History Surgery Date Site/Laterality Comments APPENDECTOMY 08/31/2003 - 09/28/2003 OVARIAN CYST REMOVAL 12/30/2003 - 01/28/2004 MENISCUS SURGERY 06/30/2005 - 07/30/2005 Family History Medical History Relation Name Comments Breast cancer Mother's Sister Breast cancer Paternal Grandmother Relation Name Status Comments Mother's Sister Paternal Grandmother Social History Tobacco Use Types Packs/Day Years Used Date Smoking Tobacco: Never Smokeless Tobacco: Never Comments Unknown Sex and Gender Information Value Date Recorded Sex Assigned at Not on file Legal Sex Female 9:30 PM KITCHEN CLEANER Gender Identity Not on file Sexual Orientation Not on file Obstetrics History Last Filed Vital Signs Vital Sign Reading Time Taken Comments Blood Pressure 100/71 06/15/2023 10:55 AM KITCHEN CLEANER Pulse 94 06/15/2023 10:55 AM KITCHEN CLEANER Temperature 36.3 C (97.3 F) 06/15/2023 10:55 AM KITCHEN CLEANER Respiratory Rate 16 06/15/2023 10:55 AM KITCHEN CLEANER Oxygen Saturation 97% 06/15/2023 10:55 AM KITCHEN CLEANER Inhaled Oxygen Concentration - - Weight 60.8 kg (134 lb) 06/15/2023 10:55 AM KITCHEN CLEANER Height 166 cm (5' 5.35 ) 12/16/2021 10:31 AM CDT Body Mass Index 22.06 12/16/2021 10:31 AM CDT Plan of Treatment Health Maintenance Due Date Last Done Comments Cervical Cancer Screening 1979 Colon Cancer Screening-Colonoscopy 1979 Depression Screening 1979 Hepatitis C Screening 1979 DTaP/Tdap/Td Vaccine (1 - Tdap) 1990 Hepatitis B Screening 1997 Regular Well Visit/Exam 18-64 1997 Influenza Vaccine (#1) 2024 Breast Cancer Screening-Mammogram 05/20/2025 05/20/2024, 11/27/2020 HPV Vaccines Aged Out No longer eligi ble based on patient's age to complete this topic Pneumococcal vaccine <65 Aged Out No longer eligible based on patient's age to complete this topic Procedures Procedure Name Priority Date/Time Associated Diagnosis [...] of the management plan. Dictated by: Javier uBrris MD The radiology attending physician has personally [...] Most Recently Relevant to Health Maintenance Insurance [employer] [place] [facility] [place] Care Teams Fiber Picker Relationship Specialty Start Date End Date Grayson Friend DO PCP - General 11/29/16
--- OUTSIDE RECORDS SUMMARY | 2024-10-25 08:24 | XMS_ITS | Patient Health Record ---
Author Organization [facility] Address [address] [place], [place] [id number] Care Team Providers Care Decommissioning Well Site Manager Name Role Phone BHARAT BARNES Unavailable [phone] Grayson Friend Unavailable Unavailable Reason For Referral No Information Social History Tobacco Use: Social History Observation Description Date Details (start date - stop date) Never Smoker NA - NA Tobacco Use/Smoking Question Answer Notes Tobacco use: nonsmoker Alcohol Screen (Audit-C) Question Answer Notes Did you have a drink containing alcohol in the p ast year? No Points 0 Interpretation Negative Plan Of Treatment No Information Insurance Providers Payer Name Payer Address Payer Phone Subscriber Number Group Number Insured Name Patient Relationship to Insured Coverage Start Date Coverage End Date [facility] ([facility]) ATTN CLAIMS [address] [place] [address] [id number] TALIA RIOS Self - patient is the insured Medical (General) History Medical History History ICD Code anemia Surgical History Surgery Date(Month/Year) appendectomy Knee Surgery
[2024-10-25] MEDS: MORPHINE SULFATE (*CRX) 4 MG/ML INJ IV PUSH (08:48)
[2024-10-25] MEDS: ONDANSETRON INJ 4 MG/2 ML VIAL IV PUSH (08:48)
--- OUTSIDE RECORDS SUMMARY | 2024-10-25 08:48 | XMS_ITS | Continuity of Care Document ---
Author Organization [facility] Address [address] [place] [address] Phone Care Team Providers Care Naval Designer Name Role Phone Amrita SALOMON OD, [place] [...] Diagnoses Date Provider Providers Copied on Encounter [facility], [address], [place], [place], [id number], [place] tel:[phone] [facility] No Information Amrita Boyle. [address], [place], [id number], [place]. tel:[phone] Referring Provider: [place] Crowe OD P, [address] [place], [address] . tel:[phone] [facility] Eye [facility], [facility], [address], [place], [place], [id number], [place] tel:[phone] [facility] Ballmarquita visual aura (chief complaint) SUBJ VISUAL DISTURB NOS Amrita Boyle. [address], [place], [id number], [place]. tel:[phone] Referring Provider: [place] Crowe OD P, [address] [place], [address] . tel:[phone] Family History Family Member Type Diagnosis Age At Onset Unknown Problem (finding) Diabetes mellitus Payers Payer name Insurance type Covered alliance party ID Authoriza tion(s) No Information Social History [...] nicolas - Return in 2 weeks with Monatna Crowe O.D. for follow up exam. Related [...]
--- OUTSIDE RECORDS SUMMARY | 2024-10-25 08:48 | XMS_ITS | Referral Summary ---
Author Organization [facility] Address [address] [address] Care Team Providers Care Econometrician Name Role Phone Grayson Friend DO Primary Care Provider +1- [phone] Allergies Active Allergy Reactions Criticality Noted Date [...] on file Legal Sex Female 9:30 PM JUNIOR QA ANALYST Gender Identity Not on file Sexual Orientation Not on file Last Filed Vital Signs Vital Sign Reading Time Taken Comments Blood Pressure 100/71 06/15/2023 10:55 AM JUNIOR QA ANALYST Pulse 94 06/15/2023 10:55 AM JUNIOR QA ANALYST Temperature 36.3 C (97.3 F) 06/15/2023 10:55 AM JUNIOR QA ANALYST Respiratory Rate 16 06/15/2023 10:55 AM JUNIOR QA ANALYST Oxygen Saturation 97% 06/15/2023 10:55 AM JUNIOR QA ANALYST Inhaled Oxygen Concentration - - Weight 60.8 kg (134 lb) 06/15/2023 10:55 AM JUNIOR QA ANALYST Height 166 cm (5' 5.35 ) 12/16/2021 [...] Recently Relevant to Health Maintenance Insurance [place] [employer] [place] [facility] CHO[place] [employer] [place] [employer] [place] Care Teams Econometrician Relationship Specialty Start Date End Date Grayosn Friend DO PCP - General 11/29/16
--- OUTSIDE RECORDS SUMMARY | 2024-10-25 08:48 | XMS_ITS | Clinical Summary ---
Author Organization [facility] Address [address] [place] [address] Care Team Providers Care Typing Checker Name Role Phone Unavailable Primary Care Provider [...]
--- OUTSIDE RECORDS SUMMARY | 2024-10-25 08:48 | XMS_ITS | Clinical Summary ---
Author Organization [facility] Address [address] [address] Care Team Providers Care Propeller Engineer Name Role Phone Grayson Friend DO Primary Care Provider [phone]- [phone] Allergies Active Allergy Reactions Criticality Noted Date [...] on file Legal Sex Female 9:30 PM DRY END TESTER Gender Identity Not on file Sexual Orientation Not on file Obstetrics History Last Filed Vital Signs Vital Sign Reading Time Taken Comments Blood Pressure 100/71 06/15/2023 10:55 AM DRY END TESTER Pulse 94 06/15/2023 10:55 AM DRY END TESTER Temperature 36.3 C (97.3 F) 06/15/2023 10:55 AM DRY END TESTER Respiratory Rate 16 06/15/2023 10:55 AM DRY END TESTER Oxygen Saturation 97% 06/15/2023 10:55 AM DRY END TESTER Inhaled Oxygen Concentration - - Weight 60.8 kg (134 lb) 06/15/2023 10:55 AM DRY END TESTER Height 166 cm (5' 5.35 ) 12/16/2021 [...] Most Recently Relevant to Health Maintenance [place] [employer] [place] [facility] CHOICE PLUS [facility] H[facility]/PPO Address: [address] [address] [place] [address] [place] [place] Care Teams Propeller Engineer Relationship Specialty Start Date End Date Grayson Friend DO PCP - General 11/29/16
[2024-10-25 08:49] LABS: Basophils Percent Auto 0.5 % (0.2-1.2); Eosinophils Absolute Auto 0.1 K/mm3 (0-0.3); Eosinophils Percent Auto 1.2 % (0-4.4); Hematocrit 36.1 % (37.0-47.0); Hemoglobin 11.7 g/dL (12.0-15.0); Immature Granulocyte Absolute 0.04 K/mm3 (0.00-0.031); Immature Granulocyte Percent A 0.5 % (0-0.5); Lymphocytes Absolute Auto 1.73 K/mm3 (0.9-3.2); Lymphocytes Percent Auto 20.7 % (18.3-44.2); Mean Corpuscular HGB Conc 32.4 g/dl (32-36); Mean Corpuscular Hemoglobin 28.7 pg (26-34); Mean Corpuscular Volume 88.5 fl (80-100); Mean Platelet Volume 10.2 fl (7.4-10.4); Monocytes Absolute Auto 0.6 K/mm3 (0.1-0.6); Monocytes Percent Auto 6.8 % (2.6-8.5); Neutrophils Absolute Auto 5.9 K/mm3 (1.3-6.7); Neutrophils Percent Auto 70.3 % (45.5-73.1); Platelet Count Result 240 k/mm3 (150-375); Red Blood Count 4.08 M/mm3 (4.2-5.4); Red Cell Distribution Width 14.1 % (11.5-14.5); White Blood Count 8.4 K/mm3 (4.5-10.0)
[2024-10-25 09:01] LABS: Alanine Aminotransferase 13 U/L (6-35); Albumin Level 3.8 g/dL (3.5-5.1); Alkaline Phosphatase 50 U/L (38-126); Anion Gap 8 mmol/L (4-12); Aspartate Amino Transferase 15 U/L (14-36); Bilirubin,Total 0.8 mg/dL (0.2-1.3); Blood Urea Nitrogen 11 mg/dL (7-17); Calcium 8.5 mg/dL (8.4-10.2); Carbon Dioxide 24 mmol/L (22-30); Chloride 102 mmol/L (98-107); Estimated CRCL calculation 92 ml/min; Estimated Glomerular Filt Rate > 60; Glucose 102 mg/dL (65-110); Potassium 3.7 mmol/L (3.4-5.0); Sodium 134 mmol/L (137-145)
[2024-10-25 09:04] VITALS: BP 98/68; PULSE 83; RESP 18; O2SAT 98
[2024-10-25 09:08] LABS: INR 0.9; Prothrombin Time 12.5 Seconds (11.1-14.7)
[2024-10-25 09:26] LABS: BEDSIDEPREGUCG Negative (Negative)
[2024-10-25 09:51] VITALS: BP 109/78; PULSE 82; RESP 16; O2SAT 99
[2024-10-25] MEDS: predniSONE 20 MG TABLET 60 MG PO (10:54)
[2024-10-25] MEDS: HYDROcodone/acetaminophen (*CRX) 5-325 MG TABLET 1 TAB PO (10:54)
[2024-10-25 10:57] VITALS: BP 108/70; PULSE 79; RESP 18; O2SAT 100
--- NOTE | 2024-10-25 11:21 | ED_ITS ---
HPI - General Adult General Chief complaint: Extremity Problem,Nontraumatic Stated complaint: my leg is not good after spinal injection Time Seen by Provider: 10/25/24 08:24 Source: patient Mode of arrival: ambulatory Limitations: no limitations History of Present Illness HPI narrative: 44-year-old with a history of chronic low back pain presents to the ER with a complaint of severe pain in her lower back radiating into her left buttock area. Patient states that she had a steroid injection between L5 and L6-2 days ago and since this morning the pain has been quite intense. She denies any bladder or bowel incontinence. No fever or chills Related Data Home Medications ?Medication ?Instructions ?Recorded ?Confirmed ?Last Taken ?Type olopatadine 0.2 % eye drops 1 drp EACH EYE DAILY 04/12/24 06/11/24 06/10/24 History (Pataday Once Daily Relief) naproxen sodium 220 mg tablet 220 mg PO BID PRN 09/03/24 Unknown History (Aleve) Allergies Allergy/AdvReac Type Severity Reaction Status Date / Time Contrast Media Allergy Intermediate Nausea and Uncoded 10/25/24 08:17 Vomiting Review of Systems 2 Review of Systems: All systems reviewed & are unremarkable except as noted in HPI and below Constitutional: Constitutional: Reports no additional constitutional complaints Eyes: Eyes: Reports no additional eye complaints ENT: Reports system reviewed and no additional complaints, except as documented Cardiovascular: Cardiovascular: Reports no additional cardiovascular complaints Respiratory: Respiratory: Reports no additional respiratory complaints Gastrointestinal: Gastrointestinal: Reports no additional gastrointestinal complaints Musculoskeletal: Musculoskeletal: Reports as per HPI Neurologic: Reports system reviewed and no additional complaints, except as documented PMFSH Past Medical History Medical History Anemia Surgical History Surgical History H/O arthroscopic knee surgery H/O laparoscopy History of appendectomy Family History Family History Grandparent Breast cancer Social History Social History Smoking status: Never smoker Alcohol intake: current Substance use: never Do You Feel Safe in your Home?: Yes Lack of Transportation: No Lack of Food: Never True Current Housing: I Have Housing Concerned About Future Housing: No Difficulty Paying Gas/Electric Bills: No Difficulty Paying for Meds: No Currently Unemployed: No Education: Bachelor's Degree Difficulty w/ Childcare or Family Care: No Living arrangements: with family Spiritual care concerns: No Exam 2 Narrative: GENERAL: Well-appearing, well-nourished, and in no acute distress. HEAD: Normocephalic, atraumatic. EYES: PERRLA and EOMI. ENT: Nares clear, no rhinorrhea or epistaxis. Mucous membranes moist. NECK: Supple. CHEST: Clear to auscultation. No respiratory distress. HEART: Regular rate and rhythm. No murmur heard. Normal peripheral pulses. ABDOMEN: Soft, nontender, nondistended, normal active bowel sounds. EXTREMITIES: Normal range of motion. No edema. SKIN: Warm, dry, no rash. NEURO: No focal deficits. Alert and oriented x3. PSYCH: Normal mood and affect. Course Course Emergency Course: Informed patient and her family about the lab work, CT findings. I also discussed with pain management doctor who recommended steroids and pain medication will follow-up in office. Vital Signs Vital signs: Vital Signs Temperature 36.4 C L 10/25/24 08:20 Pulse Rate 100 10/25/24 08:20 Respiratory Rate 20 10/25/24 08:20 Blood Pressure 141/98 H 10/25/24 08:20 Pulse Oximetry 100 10/25/24 08:20 Oxygen Delivery Room Air 10/25/24 08:20 Temperature 36.4 C L 10/25/24 08:20 Pulse Rate 79 10/25/24 10:57 Respiratory Rate 18 10/25/24 10:57 Blood Pressure 108/70 10/25/24 10:57 Pulse Oximetry 100 10/25/24 10:57 Oxygen Delivery Room Air 10/25/24 08:20 Medical Decision Making Vital Signs Vital Signs: Vital Signs Temperature 36.4 C L 10/25/24 08:20 Pulse Rate 100 10/25/24 08:20 Respiratory Rate 20 10/25/24 08:20 Blood Pressure 141/98 H 10/25/24 08:20 Pulse Oximetry 100 10/25/24 08:20 Oxygen Delivery Room Air 10/25/24 08:20 Temperature 36.4 C L 10/25/24 08:20 Pulse Rate 79 10/25/24 10:57 Respiratory Rate 18 10/25/24 10:57 Blood Pressure 108/70 10/25/24 10:57 Pulse Oximetry 100 10/25/24 10:57 Oxygen Delivery Room Air 10/25/24 08:20 Lab Data 10/25/24 08:44 10/25/24 08:44 Labs: Lab Results 10/25/24 10/25/24 Range/Units 08:44 09:24 WBC 8.4 (4.5-10.0) K/mm3 RBC 4.08 L (4.2-5.4) M/mm3 Hgb 11.7 L (12.0-15.0) g/dL Hct 36.1 L (37.0-47.0) % MCV 88.5 (80-100) fl MCH 28.7 (26-34) pg MCHC 32.4 (32-36) g/dl RDW 14.1 (11.5-14.5) % Plt Count 240 (150-375) k/mm3 MPV 10.2 (7.4-10.4) fl Immature Gran % (Auto) 0.5 (0-0.5) % Neut % (Auto) 70.3 (45.5-73.1) % Lymph % (Auto) 20.7 (18.3-44.2) % [place] % (Auto) 6.8 (2.6-8.5) % Eos % (Auto) 1.2 (0-4.4) % Baso % (Auto) 0.5 (0.2-1.2) % Lymph # (Auto) 1.73 (0.9-3.2) K/mm3 [place] # (Auto) 0.6 (0.1-0.6) K/mm3 Eos # (Auto) 0.1 (0-0.3) K/mm3 Baso # (Auto) 0.0 (0.0-0.1) K/mm3 Abs Immat Gran (auto) 0.04 H (0.00-0.031) K/mm3 Absolute Neuts (auto) 5.9 (1.3-6.7) K/mm3 Absolute Nucleated RBC 0.000 (0.0-0.012) K/mm3 Nucleated RBC % 0.0 (0.0-0.2) % PT 12.5 (11.1-14.7) Seconds INR 0.9 Sodium 134 L (137-145) mmol/L Potassium 3.7 (3.4-5.0) mmol/L Chloride 102 (98-107) mmol/L Carbon Dioxide 24 (22-30) mmol/L Anion Gap 8 (4-12) mmol/L BUN 11 (7-17) mg/dL Creatinine 0.59 L (0.7-1.0) mg/dL Estim Creat Clear Calc 92 ml/min Estimated GFR > 60 (59 - ) Glucose 102 (65-110) mg/dL Calcium 8.5 (8.4-10.2) mg/dL Total Bilirubin 0.8 (0.2-1.3) mg/dL AST 15 (14-36) U/L ALT 13 (6-35) U/L Alkaline Phosphatase 50 (38-126) U/L Total Protein 7.0 (6.3-8.2) g/dL Albumin 3.8 (3.5-5.1) g/dL POC Urine HCG, Qual Negative (Negative) Imaging Data Radiologist's impression: ITS Impressions Lumbar Spine CT 10/25/24 09:39 IMPRESSION: 1. Moderate lumbar spondylosis, stable from 09/04/2024. Discharge Plan Discharge Clinical Impression: Lumbar back pain Patient Disposition: Home, Self-Care Condition: Stable Instructions: Back Pain (ED) Additional Instructions: Take pain medication as prescribed, follow-up with your primary doctor or your pain management in the next few days. Patient Language: Nepalese Prescriptions: New methocarbamol 750 mg tablet 750 mg PO TID Qty: 30 0RF methylprednisolone [Medrol (Anthony)] 4 mg tablets,dose pack See Rx Instructions .ROUTE .COMPLEX Qty: 21 0RF Rx Instructions: for 6 days oxycodone-acetaminophen [Percocet] 5-325 mg tablet 1 tablet PO Q6H PRN (Reason: pain) Qty: 14 0RF No Action olopatadine [Pataday Once Daily Relief] 0.2 % drops 1 drp EACH EYE DAILY meclizine 12.5 mg tablet 12.5 mg PO TID PRN (Reason: dizziness) Qty: 30 1RF naproxen sodium [Aleve] 220 mg tablet 220 mg PO BID PRN Follow-up/Referrals: Mary Hernandez, RETIREMENT VILLAGE MANAGER [Primary Care Provider] - Time of Disposition: 11:24
== END 2024-10-25 11:31 | disposition home or self-care (01) ==
PROVIDERS: Emergency Provider Family Medicine; PCP Nurse Practitioner
DX: M54.50 Low back pain, unspecified (principal); Z79.52 Long term (current) use of systemic steroids
CPT/HCPCS: 36415; 72131; 80053; 81025; 85025; 85610; 96374; 96375; 99284; A9270; J2270; J2405; J7512

== ENCOUNTER 2024-11-16 12:40 | Emergency (ER) | payer BC, SELFPAY ==
--- NOTE | ~2024-11-16 | US_ITS ---
US pelvic complete Ordering provider: Bernard Almonte MD History: . LLQ pain, concern for ovarian cyst versus torsion . Comparison: July 16, 2008 Technique: Transabdominal and endovaginal ultrasound of the pelvis (Doppler ultrasound interrogation techniques used as needed for this exam.) FINDINGS: CERVIX: Normal. UTERUS: Measures 9.6x 5.1x 6.8 cm in length which is within normal limits and is anteverted. No myom etrial masses. Highly suggestive arcuate uterus is noted. ENDOMETRIUM: Normal in thickness measuring 5.8 mm. No endometrial masses, cysts or fluid. CUL DE SAC: No free fluid. RIGHT OVARY: Normal in size measuring 4.2x 3.4x 3.2 cm. Normal echotexture. Doppler vascular flow pre sent. Simple Cyst is seen measuring 2.7 x 2.3 x 2.7 cm. LEFT OVARY: Normal in size measuring 2.4x 2x 2 cm. Normal echotexture. Doppler vascular flow present. Dominant follicle is seen measuring 1.1 x 1 x 0.8 cm ADNEXA: Normal. No mass. IMPRESSION: Right ovarian cyst Otherwise, normal pelvic ultrasound. No definite evidence of torsion seen. Reviewed, dictated and finalized at location A.
[2024-11-16 12:41] VITALS: BP 125/70; PULSE 104; RESP 16; TEMP 36.8; O2SAT 98
--- OUTSIDE RECORDS SUMMARY | 2024-11-16 12:42 | XMS_ITS | Referral Summary ---
Author Organization [facility] Address [address] [address] Care Team Providers Care Lap Maker Name Role Phone Grayson Friend DO Primary Care Provider +1- [phone] Allergies Active Allergy Reactions Criticality Noted Date [...] on file Legal Sex Female 9:30 PM SCHOOL COORDINATOR Gender Identity Not on file Sexual Orientation Not on file Last Filed Vital Signs Vital Sign Reading Time Taken Comments Blood Pressure 100/71 06/15/2023 10:55 AM SCHOOL COORDINATOR Pulse 94 06/15/2023 10:55 AM SCHOOL COORDINATOR Temperature 36.3 C (97.3 F) 06/15/2023 10:55 AM SCHOOL COORDINATOR Respiratory Rate 16 06/15/2023 10:55 AM SCHOOL COORDINATOR Oxygen Saturation 97% 06/15/2023 10:55 AM SCHOOL COORDINATOR Inhaled Oxygen Concentration - - Weight 60.8 kg (134 lb) 06/15/2023 10:55 AM SCHOOL COORDINATOR Height 166 cm (5' 5.35 ) 12/16/2021 [...] Recently Relevant to Health Maintenance Insurance [employer] [place] [facility] CHOICE PLUS [facility] HMO/PPO Address: [address] [address] [place] [address] [employer] [place] [employer] [place] Care Teams Lap Maker Relationship Specialty Start Date End Date Grayson Friend DO PCP - General 11/29/16
--- OUTSIDE RECORDS SUMMARY | 2024-11-16 12:42 | XMS_ITS | Clinical Summary ---
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 Gender Identity Not on file Sexual Orientation Not on file Obstetrics History Last Filed Vital Signs Vital Sign Reading Time Taken Comments Blood Pressure 100/71 06/15/2023 10:55 AM AIRCRAFT PAINTER APPRENTICE Pulse 94 06/15/2023 10:55 AM AIRCRAFT PAINTER APPRENTICE Temperature 36.3 C (97.3 F) 06/15/2023 10:55 AM AIRCRAFT PAINTER APPRENTICE Respiratory Rate 16 06/15/2023 10:55 AM AIRCRAFT PAINTER APPRENTICE Oxygen Saturation 97% 06/15/2023 10:55 AM AIRCRAFT PAINTER APPRENTICE Inhaled Oxygen Concentration - - Weight 60.8 kg (134 lb) 06/15/2023 10:55 AM AIRCRAFT PAINTER APPRENTICE Height 166 cm (5' 5.35 ) 12/16/2021 10:31 AM CDT Body Mass Index 22.06 12/16/2021 10:31 AM CDT Plan of Treatment Health Maintenance Due Date Last Done Comments Cervical Cancer Screening 1979 Colon Cancer Screening-Colonoscopy 1979 Depression Screening 1979 Hepatitis C Screening 1979 DTaP/Tdap/Td Vaccine (1 - Tdap) 1990 Hepatitis B Screening 1997 Regular Well Visit/Exam 18-64 1997 Influenza Vaccine (Season Ended) 2025 Breast Cancer Screening-Mammogram 05/20/2025 05/20/2024, 11/27/2020 HPV [...] Most Recently Relevant to Health Maintenance Insurance [employer] [place] [facility] CHOICE PLUS [facility] HMO/PPO Address: [address] [address] [place] [address] [employer] [place] [employer] [place] Care Teams Mold Stamper Relationship Specialty Start Date End Date Grayson Friend DO PCP - General 11/29/16
--- OUTSIDE RECORDS SUMMARY | 2024-11-16 12:42 | XMS_ITS | Data Portability ---
Author Organization [facility] Address [address] [place] [address] [place] [address] Care Team Providers Care Brimmer Blocker Name Role Phone OSMAR XAVIER Primary Care [...] 2020 Davin Briones MD, [address], [place], [address], 16:11:52 US, pelvis 2020 [email or web address] [place], [address], [address], [place], [address], 14:12:45 US, transvagina l 2020 [email or web address], [place], [address], 14:12:45 US, pelvis, complete 2020 021 [email or web address], [place], [address], 14:55:10 Medication Orders None recorded. Patient TargetsNo targets recorded. Patient InstructionsNo instructions recorded. Reason for Referral None Reported. Results Created Date Observation Date Name Description Value Unit Range Abnormal Flag Note LastModifiedBy Organization Detail LastModifiedTime 05/06/2005/06/2021 US, raul ken No observ ation record ed. [email or web address] [facility] [address], [place], [address], 05/06/2021 13:45:15 05/06/2005/06/2021 US, trans vagin al No observ ation record ed. [email or web address] [facility] [address], [place], [address], 05/06/2021 13:45:24 05/06/20 21 05/06/2021 US, jovanvi s No observ ation record ed. layran Anh [address], [place], [address], 05/13/2021 18:04:31 Result Notes None recorded. Problems [...] Bill able Time: 01:00:00 PM Marie Latham [place], [place] - [facility] 13:38:55 Screenin g for malignan t neoplasm of cervix Completed 201305/04/2021 Screening for malignant neoplasms of the cervix;Re corded Elsewhere : No Locati on: [facility] So urce: EHR Chron ic: N Practic e ID: [id number] Bill able Time: 02:00:00 PM Marie Latham [facility] 13:38:50 Palpitat ions [id number] Completed 201305/04/2021 Palpitati ons;Recor ded Elsewhere : No Locati on: [facility] So urce: EHR Chron ic: N Practic e ID: 0001 Bill able Time: 02:00:00 PM Marie Latham [facility] 13:38:[address] Concept Completed 201705/04/2021 Encntr for medical assistant ob gyn exam (general) (routine) w/o abn findings; Recorded Elsewhere : No Locati on: [facility] So urce: EHR Chron ic: N Practic e ID: [id number] Bill able Time: 01:00:00 PM Marie Latham [facility] 13:38:57 Finding of menstrua l bleeding Completed 201705/04/2021 Menorrhag ia;Record ed Elsewhere : No Locati on: [facility] So urce: EHR Chron ic: N Practic e ID: 0001 Bill able Time: 01:00:00 PM Marie Latham [facility] 13:38:28 Disorder of breast [id number] Completed 201705/04/2021 Disorder of breast, unspecifi ed;Record ed Elsewhere : No Locati on: [facility] So urce: EHR Chron ic: N Practic e ID: [id number] Bill able Time: 01:00:00 PM Marie Latham [facility] 13:38:25 Routine antenata l care Completed 201005/04/2021 Supervisi on of other normal ;Practice ID: [id number] [facility] 13:38:35 Poor growth affectin g manageme nt [id number] Completed 201005/04/2021 GROWTH POOR SGA;Pract ice ID: 0001 Marie Latham [facility] 13:38:33 Delivery normal [id number] Completed 201005/04/2021 Normal delivery; Practice ID: [id number] Marie Latham [facility] 13:38:23 Single live [id number] Completed 201005/04/2021 Mother with single liveborn; Practice ID: [id number] Marie Latham [facility] 13:38:53 Leukocyt osis 478204592 Completed 201305/04/2021 LEUKOCYTO SIS NOS;Pract ice ID: 0001 Marie Latham [facility] 13:38:30 Female genital organ symptoms 381894067 Completed 201305/04/2021 Unspecifi ed symptom associate d with female genital organs;Pr actice ID: [id number] Marie Latham [facility] 13:38:26 Speciali zed medical examinat ion Completed 201305/04/2021 Routine gynecolog ical examinati on;Practi ce ID: 0001 Marie Latham [facility] 13:38:58 Cyst of ovary 01442047 Completed 201305/04/2021 OVARIAN CYST;Prac griselda ID: 0001 Marie Latham [facility] 13:38:22 Problem Notes None recorded. Procedures Surgical History Date Name Laterality Status Provider Name and Address Organization Details Recorded Time 05/12/20 Date of Last Mammogram completed Marie Latham [facility] 05/12/2021 17:31:37 07/31/19 13 Appendectomy completed [facility] 05/12/2021 17:27:51 07/31/19 13 laparoscopy completed [facility] 05/12/2021 17:28:28 Imaging Results Imaging Date Name Status LastModified by Organization Details LastModified Time 05/06/2021 US, pelvis completed [email or web address] [facility] [address], [place], [address], 05/06/2021 13:45:15 05/06/2021 US, transvaginal completed [email or web address] [place] [address], [place], [address], 05/06/2021 13:45:24 05/06/2021 US, pelvis completed layran Anh [address], [place], [address], 05/13/2021 18:04:31 Procedure Notes None recorded. Medical Equipment None Reported. Allergies Allergen ID Allergen Name Allergen Category Reaction Reaction Severity Criticality Documentation Date Start Date Code Code System Note Provider Name and Address Organization Details Recorded Time 92980 Iodinated contrast media (substanc e) medicatio n Not available Not available Not available 05/04/[address] [facility] 16:05:02 Vitals Date Recorded Body height Body mass index (BMI) Body weight Systolic blood pressure Diastolic blood pressure Provider Name and Address Organization Details Last Updated DateTime 05/04/2021 163.83 cm 22.8 kg/m2 20704.97 g 109 mm[Hg] 71 mm[Hg] [facility] 16:04:48 Date Recorded Body height Body mass index (BMI) Body weight Systolic blood pressure Diastolic blood pressure Provider Name and Address Organization Details Last Updated DateTime 05/13/2021 163.83 cm 23.2 kg/m2 94081.15 g 99 mm[Hg] 64 mm[Hg] Marie Latham [facility] 13:04:01 Social History Question Answer Notes LastModified by Organizat ion Details LastModified Time Tobacco Smoking Status Never Smoker Marie Latham [facility], [facility] 05/12/2021 17:29:51 What Is Your Level [...] Anxious, Or Unable To Sleep At Night)? AE80173-2 Information not available 05/12/2021 Do You Use [...] SNOMED-CT Code Diagnosis ICD10 Code Diagnosis Note [id number] Cara Flynn , [facility] [address],[place] [address] 05/04/2021 15:46:17 05/04/2021 16:31:03 Abnormal uterine bleeding [id number] 9100 N93.9 Heavy menses with covid ast [...] this patient s visit, including available hand business development intern upon arrive, temperatur e check and being asked a series of screening questions. All staff wore face coverings during this encounter, as well as provided additional cleaning and sanitizing of all surfaces, including countertop s, pens, chairs, door handles, light switches, etc, prior to and following the patient s visit. [id number] Sharynisiah Latham [facility] [address],[place] [address] 05/06/2021 11:04:10 05/06/2021 12:00:12 Pain in pelvis 83818047 R10.2 N92.6 [id number] Cara Flynn , [facility] [address],[place] [address] 05/13/2021 12:51:21 05/13/2021 13:47:12 Cyst of ovary 51619122 N83.209 TVUS reviewed.S he is doing very [...] this patient s visit, including available hand business development intern upon arrive, temperatur e check and being [...] ID Guarantor Name 05/04/2021 1 [employer] [id number] Tania N [place] [id number] 53 Tania N [place] 05/06/2021 1 [place] [id number] Tania N [place] [id number] 53 Tania N [place] 05/13/2021 1 [place] [id number] Tania N [place] [id number] 53 Tania N [place] Notes Date Note Type Note Provider Name [...] day 2 but then moderate to progressively manager management. Cara Flynn, NIKOLAI- [address], [place], [address], [facility] 05/04/2021 16:26:13 05/13/2021 text/html Here for TVUS Fo llow up for pelvic pain/irregular cycle. Cara Flynn, NIKOLAI- [address], [place], [address], [facility] 05/13/2021 13:34:57 OBGyn Episode Ob Episode Information Episode Created Date Number of Fetuses Patient Bloodtype Patient rh Status Prepregnancy Weight lbs Domestic Partner Domestic Partner Phone Father Name Cylinder Inspector And Tester Status 05/12/20 21 1 CLOSED Fetus Data First Name Last Name Admitted to NICU Weight (g) Sex Living Outcome Pediatric Complications Fetus ID Race Codes Race Delivery Type F [id number] Vaginal Delivery Ced Calculation Initial Ced Date [...] Domestic Partner Domestic Partner Phone Father Name Cylinder Inspector And Tester Status 05/12/20 21 1 CLOSED Fetus Data First Name Last Name Admitted to NICU Weight (g) Sex Living Outcome Pediatric Complications Fetus ID Race Codes Race Delivery Type F [id number] Vaginal Delivery Ced Calculation Initial Ced Date [...] Domestic Partner Domestic Partner Phone Father Name Cylinder Inspector And Tester Status 05/12/20 21 1 CLOSED Fetus Data First Name Last Name Admitted to NICU Weight (g) Sex Living Outcome Pediatric Complications Fetus ID Race Codes Race Delivery Type F [id number] Vaginal Delivery Ced Calculation Initial Ced Date [...]
--- OUTSIDE RECORDS SUMMARY | 2024-11-16 12:42 | XMS_ITS | Continuity of Care Document ---
Author Organization Located within [facility] Address [address] [place] [address] Phone Care Team Providers Care Mat Roller Name Role Phone Amrita SALOMON OD, [place] [...] Diagnoses Date Provider Providers Copied on Encounter [facility], [address], [place], [place], [id number], [place] tel:[phone] [facility] No Information Amrita Boyle. [address] [place], [place], [address], [place]. tel:[phone] Referring Provider: [place] Crowe OD P, [address] [place], [address] . tel:[phone] [facility] Eye [facility], [address], [place], [place], [address], [place] tel:[phone] [address] [facility] Srikanth SUBJ VISUAL DISTURB NOS Amrita Boyle. [address], [place], [address], [place]. tel:[phone] Referring Provider: [place] Crowe OD P, [address] [place], [address] . tel:[phone] Family History Family Member Type Diagnosis Age At Onset Unknown Problem (finding) Diabetes mellitus Payers Payer name Insurance type Covered libertarian ID Authoriza tion(s) No Information Social History [...]
--- OUTSIDE RECORDS SUMMARY | 2024-11-16 12:42 | XMS_ITS | Patient Health Record ---
Author Organization [facility] Address [address] [place], [place] [id number] Care Team Providers Care Flower Shop Laborer/Designer Name Role Phone BHARAT BARNES Unavailable [phone] Grayson Friend Unavailable Unavailable Reason For Referral [...] Insured Coverage Start Date Coverage End Date [facility] ATTN CLAIMS [address] [place] [address] [id number] TALIA RIOS Self - patient is the insured Medical (General) History Medical History History ICD Code anemia Surgical History Surgery Date(Month/Year) appendectomy Knee Surgery
--- OUTSIDE RECORDS SUMMARY | 2024-11-16 12:42 | XMS_ITS | Clinical Summary ---
Author Organization [facility] Address [address] [place] [address] Care Team Providers Care Live In Housekeeper Name Role Phone Unavailable Primary Care Provider [...] 2019 COVID-19 Vaccine (2023-2 5 season) 2024 HPV Vaccines Aged Out No longer eligi ble based on patient's age to complete this topic Meningococcal B Vaccine Aged Out No l onger eligible based on patient's age to complete this topic Meningococcal Vaccine Aged Out No hardik alise eligible based on patient's age to complete this topic Pneumococcal Vaccine: Pediat rics (0 to 5 Years) and At-Risk Patients (6 to 49 Years) Aged Out No longer eligible b ased on patient's age to complete this topic RSV Immunizations Under 20 Months Aged Out No longer eligible based on patient's age to complete this topic
--- OUTSIDE RECORDS SUMMARY | 2024-11-16 13:56 | XMS_ITS | Continuity of Care Document ---
Author Organization [facility] Address [address] [place] [address] Phone Care Team Providers Care Operator Weapon Locating Radar Name Role Phone Amrita SALOMON OD, [place] [...] Diagnoses Date Provider Providers Copied on Encounter [facility], [address], [place], [place], [address], [place] tel:[phone] [facility] No Information Amrita Boyle. [address], [place], [address], [place]. tel:[phone] Referring Provider: [place] Crowe OD P, [address] [place], [address] . tel:[phone] [facility] Eye [facility], [address], [place], [place], [address], [place] tel:[phone] [address] [facility] Srikanth SUBJ VISUAL DISTURB NOS Amrita Boyle. [address], [place], [address], [place]. tel:[phone] Referring Provider: [place] Crowe OD P, [address] [place], [address] . tel:[phone] Family History Family Member Type Diagnosis Age [...]
--- OUTSIDE RECORDS SUMMARY | 2024-11-16 13:56 | XMS_ITS | Referral Summary ---
Author Organization [facility] Address [address] [address] Care Team Providers Care Public Health Internship Name Role Phone Grayson Friend DO Primary Care Provider +1- [phone] Allergies Active Allergy Reactions Criticality Noted Date [...] on file Legal Sex Female 9:30 PM SENIOR LEAD JAVA DEVELOPER Gender Identity Not on file Sexual Orientation Not on file Last Filed Vital Signs Vital Sign Reading Time Taken Comments Blood Pressure 100/71 06/15/2023 10:55 AM SENIOR LEAD JAVA DEVELOPER Pulse 94 06/15/2023 10:55 AM SENIOR LEAD JAVA DEVELOPER Temperature 36.3 C (97.3 F) 06/15/2023 10:55 AM SENIOR LEAD JAVA DEVELOPER Respiratory Rate 16 06/15/2023 10:55 AM SENIOR LEAD JAVA DEVELOPER Oxygen Saturation 97% 06/15/2023 10:55 AM SENIOR LEAD JAVA DEVELOPER Inhaled Oxygen Concentration - - Weight 60.8 kg (134 lb) 06/15/2023 10:55 AM SENIOR LEAD JAVA DEVELOPER Height 166 cm (5' 5.35 ) 12/16/2021 [...] Recently Relevant to Health Maintenance Insurance [employer] [place] [facility] [place]ICE [place] [employer] [place] Care Teams Public Health Internship Relationship Specialty Start Date End Date Grayson Friend DO PCP - General 11/29/16
--- OUTSIDE RECORDS SUMMARY | 2024-11-16 13:56 | XMS_ITS | Clinical Summary ---
Author Organization [facility] Address [address] [address] Care Team Providers Care Store Team Member Name Role Phone Grayson Friend DO Primary Care Provider +1- [phone] Allergies Active Allergy Reactions Criticality Noted Date [...] on file Legal Sex Female 9:30 PM OPTOMECHANICAL ENGINEER Gender Identity Not on file Sexual Orientation Not on file Obstetrics History Last Filed Vital Signs Vital Sign Reading Time Taken Comments Blood Pressure 100/71 06/15/2023 10:55 AM OPTOMECHANICAL ENGINEER Pulse 94 06/15/2023 10:55 AM OPTOMECHANICAL ENGINEER Temperature 36.3 C (97.3 F) 06/15/2023 10:55 AM OPTOMECHANICAL ENGINEER Respiratory Rate 16 06/15/2023 10:55 AM OPTOMECHANICAL ENGINEER Oxygen Saturation 97% 06/15/2023 10:55 AM OPTOMECHANICAL ENGINEER Inhaled Oxygen Concentration - - Weight 60.8 kg (134 lb) 06/15/2023 10:55 AM OPTOMECHANICAL ENGINEER Height 166 cm (5' 5.35 ) 12/16/2021 [...] Most Recently Relevant to Health Maintenance Insurance [employer] [place] [facility] CHOICE PLUS [facility] HMO/PPO Address: [address] [address] [place] [address] [employer] [place] [employer] [place] Care Teams Store Team Member Relationship Specialty Start Date End Date Grayson Friend DO PCP - General 11/29/16
[2024-11-16 13:59] LABS: Basophils Absolute Auto 0.1 K/mm3 (0.0-0.1); Basophils Percent Auto 0.7 % (0.2-1.2); Eosinophils Absolute Auto 0.2 K/mm3 (0-0.3); Eosinophils Percent Auto 2.3 % (0-4.4); Hematocrit 34.5 % (37.0-47.0); Hemoglobin 10.8 g/dL (12.0-15.0); Immature Granulocyte Absolute 0.02 K/mm3 (0.00-0.031); Immature Granulocyte Percent A 0.3 % (0-0.5); Lymphocytes Absolute Auto 1.63 K/mm3 (0.9-3.2); Lymphocytes Percent Auto 23.2 % (18.3-44.2); Mean Corpuscular HGB Conc 31.3 g/dl (32-36); Mean Corpuscular Hemoglobin 28.2 pg (26-34); Mean Corpuscular Volume 90.1 fl (80-100); Mean Platelet Volume 10.6 fl (7.4-10.4); Monocytes Absolute Auto 0.6 K/mm3 (0.1-0.6); Monocytes Percent Auto 8.8 % (2.6-8.5); Neutrophils Absolute Auto 4.6 K/mm3 (1.3-6.7); Neutrophils Percent Auto 64.7 % (45.5-73.1); Platelet Count Result 243 k/mm3 (150-375); Red Blood Count 3.83 M/mm3 (4.2-5.4); Red Cell Distribution Width 14.7 % (11.5-14.5)
[2024-11-16 14:10] LABS: Alanine Aminotransferase 14 U/L (6-35); Albumin Level 3.8 g/dL (3.5-5.1); Alkaline Phosphatase 53 U/L (38-126); Anion Gap 6 mmol/L (4-12); Aspartate Amino Transferase 17 U/L (14-36); Bilirubin,Total 0.8 mg/dL (0.2-1.3); Blood Urea Nitrogen 11 mg/dL (7-17); Calcium 8.6 mg/dL (8.4-10.2); Carbon Dioxide 27 mmol/L (22-30); Chloride 104 mmol/L (98-107); Estimated CRCL calculation 89 ml/min; Estimated Glomerular Filt Rate > 60; Glucose 105 mg/dL (65-110); Potassium 3.7 mmol/L (3.4-5.0); Sodium 137 mmol/L (137-145)
[2024-11-16 14:11] LABS: Prothrombin Time 13.1 Seconds (11.1-14.7)
[2024-11-16 14:12] LABS: Partial Thromboplastin Time 29.2 Seconds (22.3-36.8)
[2024-11-16 14:37] VITALS: BP 94/79; PULSE 84; RESP 16; O2SAT 100
--- NOTE | 2024-11-16 14:45 | PC.NURSE ---
Dr. Almonte at bedside assessing pt.
[2024-11-16 14:53] LABS: BEDSIDEPREGUCG Negative (Negative)
--- NOTE | 2024-11-16 14:55 | ED.ABDPAIN ---
HPI - Abdominal Pain General Chief Complaint: Abdominal Pain Stated Complaint: abd pain Time Seen by Provider: 11/16/24 13:38 History of Present Illness HPI narrative: 44-year-old female present to the emergency department for evaluation for left lower quadrant abdominal pain. Patient states that the pain has been bothering her for the last 5 days. Patient denies any change in bowel or bladder habits. Patient has no prior history of colitis diverticulitis. Patient does have a remote history of ovarian cysts last 1 being in 2003. Patient does have a history of sciatica for which she does follow-up with pain management and approximately 2 weeks ago she did require additional steroids and steroid injections but states that that pain did improve and that her current pain does not feel similar to her previous sciatica pain. Patient denies any current urinary symptoms denies any vaginal bleeding vaginal discharge. She did finish her menstrual cycle on Monday. Related Data Home Medications ?Medication ?Instructions ?Recorded ?Confirmed ?Last Taken ?Type olopatadine 0.2 % eye drops 1 drp EACH EYE DAILY 04/12/24 06/11/24 06/10/24 History (Pataday Once Daily Relief) naproxen sodium 220 mg tablet 220 mg PO BID PRN 09/03/24 Unknown History (Aleve) Allergies Allergy/AdvReac Type Severity Reaction Status Date / Time Contrast Media Allergy Intermediate Nausea and Uncoded 10/25/24 08:17 Vomiting Review of Systems Review of Systems: All systems reviewed & are unremarkable except as noted in HPI and below PMFSH Past Medical History Medical History Anemia Surgical History Surgical History H/O arthroscopic knee surgery H/O laparoscopy History of appendectomy Family History Family History Grandparent Breast cancer Social History Social History Smoking status: Never smoker Alcohol intake: current Substance use: never Do You Feel Safe in your Home?: Yes Lack of Transportation: No Lack of Food: Never True Current Housing: I Have Housing Concerned About Future Housing: No Difficulty Paying Gas/Electric Bills: No Difficulty Paying for Meds: No Currently Unemployed: No Education: Bachelor's Degree Difficulty w/ Childcare or Family Care: No Living arrangements: with family Spiritual care concerns: No Exam Narrative: APPEARANCE: Uncomfortable appearing HEAD: normocephalic, atraumatic. EYES: PERRLA/EOMI, conjunctivae clear. NOSE: Normal no drainage EARS:TMS clear with good light reflex. THROAT: Pharynx clear, no exudate. NECK: Supple. No adenopathy, no masses. RESPIRATORY: Airway patent, respirations nonlabored. Clear to auscultation bilaterally, no rales, rhonchi, wheezing. CARDIOVASCULAR: Regular rate and rhythm without murmurs rubs or gallops. ABDOMINAL: Left lower quadrant tenderness to palpation, no CVA tenderness MUSCULOSKELETAL: Moves all extremities. Strength/ROM intact, No edema, No calf tenderness. NEURO: Alert. Cranial nerves II through XII intact. Good gait. Good coordination SKIN: Warm, dry. Normal Color Course Vital Signs Vital signs: Vital Signs Temperature 98.2 F 11/16/24 12:41 Pulse Rate 104 H 11/16/24 12:41 Respiratory Rate 16 11/16/24 12:41 Blood Pressure 125/70 11/16/24 12:41 Pulse Oximetry 98 11/16/24 12:41 Temperature 98.2 F 11/16/24 12:41 Pulse Rate 61 11/16/24 17:16 Respiratory Rate 16 11/16/24 17:16 Blood Pressure 108/75 11/16/24 17:16 Pulse Oximetry 100 11/16/24 17:16 MDM - Abdominal Pain MDM Narrative Medical decision making narrative: 44-year-old female presented emergency department for evaluation for left lower quadrant pain. Patient is currently afebrile with no leukocytosis and hemoglobin of 10.8. Patient's INR is 1.0. No significant abnormalities on the patient's CMP. UA was positive for leukocyte esterase and white blood cells with occasional squamous and bacteria, patient denies any urinary symptoms. Pelvic ultrasound did show an ovarian cyst that was less than 5 cm. Patient was provided medications for pain control and encouraged close follow-up with OB Gyne. All questions concerns were addressed patient was comfortable with the plan for discharge and close follow-up. Differential Diagnosis Differential diagnosis: Likely calculus of kidney, diverticulitis, small bowel obstruction and other (Ovarian torsion, ovarian cyst) Lab Data Attestation: I reviewed the patient's lab results. 11/16/24 13:54 11/16/24 13:54 Labs: Lab Results 11/16/24 11/16/24 11/16/24 Range/Units 13:54 14:51 14:52 WBC 7.0 (4.5-10.0) K/mm3 RBC 3.83 L (4.2-5.4) M/mm3 Hgb 10.8 L (12.0-15.0) g/dL Hct 34.5 L (37.0-47.0) % MCV 90.1 (80-100) fl MCH 28.2 (26-34) pg MCHC 31.3 L (32-36) g/dl RDW 14.7 H (11.5-14.5) % Plt Count 243 (150-375) k/mm3 MPV 10.6 H (7.4-10.4) fl Immature Gran % (Auto) 0.3 (0-0.5) % Neut % (Auto) 64.7 (45.5-73.1) % Lymph % (Auto) 23.2 (18.3-44.2) % [place] % (Auto) 8.8 H (2.6-8.5) % Eos % (Auto) 2.3 (0-4.4) % Baso % (Auto) 0.7 (0.2-1.2) % Lymph # (Auto) 1.63 (0.9-3.2) K/mm3 [place] # (Auto) 0.6 (0.1-0.6) K/mm3 Eos # (Auto) 0.2 (0-0.3) K/mm3 Baso # (Auto) 0.1 (0.0-0.1) K/mm3 Abs Immat Gran (auto) 0.02 (0.00-0.031) K/mm3 Absolute Neuts (auto) 4.6 (1.3-6.7) K/mm3 Absolute Nucleated RBC 0.000 (0.0-0.012) K/mm3 Nucleated RBC % 0.0 (0.0-0.2) % PT 13.1 (11.1-14.7) Seconds INR 1.0 APTT 29.2 (22.3-36.8) Seconds Sodium 137 (137-145) mmol/L Potassium 3.7 (3.4-5.0) mmol/L Chloride 104 (98-107) mmol/L Carbon Dioxide 27 (22-30) mmol/L Anion Gap 6 (4-12) mmol/L BUN 11 (7-17) mg/dL Creatinine 0.61 L (0.7-1.0) mg/dL Estim Creat Clear Calc 89 ml/min Estimated GFR > 60 (59 - ) Glucose 105 (65-110) mg/dL Lactic Acid 1.0 (0.7-2.0) mmol/L Calcium 8.6 (8.4-10.2) mg/dL Total Bilirubin 0.8 (0.2-1.3) mg/dL AST 17 (14-36) U/L ALT 14 (6-35) U/L Alkaline Phosphatase 53 (38-126) U/L Total Protein 7.0 (6.3-8.2) g/dL Albumin 3.8 (3.5-5.1) g/dL Urine Color Yellow (Yellow) Urine Appearance Cloudy H (Clear) Urine pH 7.0 (5.0-9.0) Ur Specific [place] 1.024 (1.001-1.035) Urine Protein Negative (Negative) mg/dL Urine Glucose (UA) Negative (Negative) mg/dL Urine Ketones Negative (Negative) mg/dL Ur Blood (Man) Negative (Negative) Urine Nitrate Negative (Negative) Urine Bilirubin Negative (Negative) Urine Urobilinogen 1.0 (<2.0) mg/dL Leukocyte Esterase Rfl 1+ H (Negative) DENEEN/UL Urine RBC 0-2 (0-2) /hpf Urine WBC 6-10 H (0-3) /hpf Ur Squamous Epith Cells Occasional (Few) /hpf Urine Bacteria 1+ H /hpf Urine Casts 0-2 POC Urine HCG, Qual Negative (Negative) Imaging Data Radiologist's impression: ITS Impressions Pelvis Ultrasound 11/16/24 16:08 IMPRESSION: Right ovarian cyst Otherwise, normal pelvic ultrasound. No definite evidence of torsion seen. Discharge Plan Discharge Clinical Impression: Ovarian cyst Patient Disposition: Home Condition: Stable Instructions: Antibiotic Form, Ovarian Cyst (ED) Additional Instructions: Ibuprofen scheduled for pain control. [place] as needed for additional pain control. Have close follow-up with OB Gyne. If you have any worsening symptoms then please call or return to the emergency department. Patient Language: [place] Prescriptions: New hydrocodone-acetaminophen 5-325 mg tablet 1 tablet PO Q12H PRN (Reason: pain) Qty: 14 0RF No Action olopatadine [Pataday Once Daily Relief] 0.2 % drops 1 drp EACH EYE DAILY meclizine 12.5 mg tablet 12.5 mg PO TID PRN (Reason: dizziness) Qty: 30 1RF naproxen sodium [Aleve] 220 mg tablet 220 mg PO BID PRN methocarbamol 750 mg tablet 750 mg PO TID Qty: 30 0RF methylprednisolone [Medrol (Anthony)] 4 mg tablets,dose pack See Rx Instructions .ROUTE .COMPLEX Qty: 21 0RF Rx Instructions: for 6 days oxycodone-acetaminophen [Percocet] 5-325 mg tablet 1 tablet PO Q6H PRN (Reason: pain) Qty: 14 0RF Follow-up/Referrals: Davin Briones MD [Physician] - Mary Hernandez NP [Primary Care Provider] -
--- NOTE | 2024-11-16 15:10 | PC.NURSE ---
Ultrasound at bedside.
[2024-11-16 15:15] LABS: Add Urine Microscopic? YES; Appearance Urine Cloudy (Clear); Bacteria Urine 1+ /hpf; Bilirubin Urine Negative (Negative); Blood Urine Negative (Negative); Color Urine Yellow (Yellow); Glucose Urine UA Negative (Negative); Ketones Urine Negative (Negative); Leukocyte Esterase Ur 1+ LEU/UL (Negative); Nitrate Urine Negative (Negative); Non Pathogenic Casts 0-2; Protein Urine Negative (Negative); RBC Urine 0-2 /hpf (0-2); Specific Grav Ur 1.024 (1.001-1.035); Squamous Epithelial Cell Urine Occasional /hpf (Few)
[2024-11-16 15:35] VITALS: BP 99/76; PULSE 83; RESP 16; O2SAT 99
[2024-11-16] MEDS: LACTATED RINGERS 1,000 ML 999 ML IV CONT (15:36)
[2024-11-16] MEDS: HYDROmorphone HCL INJ (*CRX) 2 MG/ML VIAL 0.5 MG IV PUSH (15:40)
[2024-11-16] MEDS: KETOROLAC 15 MG/ML VIAL (*BKC) IV PUSH (17:15)
[2024-11-16 17:16] VITALS: BP 108/75; PULSE 61; RESP 16; O2SAT 100
== END 2024-11-16 18:12 | disposition home or self-care (01) ==
PROVIDERS: Emergency Provider Emergency Medicine; PCP Nurse Practitioner
DX: N83.201 Unspecified ovarian cyst, right side (principal)
CPT/HCPCS: 36415; 76856; 80053; 81001; 81025; 83605; 85025; 85610; 85730; 87086; 96361; 96374; 96375; 99284; J1171; J1885; J7120